=== PATIENT | male | born 1985 | race Caucasian/White ===

== ENCOUNTER 2016-06-08 00:35 | Emergency (ER) | payer MEDICAID ==
[2016-06-08 00:44] VITALS: BP 144/75; TEMP 97.9
--- NOTE | 2016-06-08 01:18 | C.PDOC ---
History Of Present Illness 31 y/o male, history of NIDDM 6months ago, non compliant with medication, presents to ED after sugar checked at home and was "high" and took dose of metformin. Patient states last night checked it was in 100's. AT present time, pt Denies any active physical complaints. Pt states blood sugar has been fluctuating over last 6 months since starting Metformin. 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 Ambulate to Ed for evaluation, not in any apparent distress. Time Seen by Provider: 06/08/16 00:52 Chief Complaint (Nursing): High Blood Sugar History Per: Patient History/Exam Limitations: no limitations Onset/Duration Of Symptoms: Days Current Symptoms Are (Timing): Still Present Current Diabetic Medications: Oral Medication Associated Infectious Symptoms: denies: Cough, Urinary Urgency, Urinary Frequency, Nausea, Vomiting, Diarrhea Recent travel outside of the [place]: No Past Medical History Reviewed: Historical Data, Nursing Documentation, Vital Signs Vital Signs: Last Vital Signs Temp 97.9 F 06/08/16 00:40 Pulse 64 06/08/16 02:21 Resp 20 06/08/16 02:21 BP 144/75 06/08/16 00:40 Pulse Ox 100 06/08/16 02:21 - Medical History PMH: Asthma, Diabetes (Pre-diabetic), Fractures (right ankle), Gall Bladder Disease - [facility] Procedures DETOXIFICATION SERVICES FOR SUBSTANCE ABUSE TREATMENT (10/16/15) INDIV PHYSICIAN ASSISTANT FOR SUBSTANCE ABUSE, COGNITIVE BEHAVIORAL (10/16/15) INDIV PSYCHOTHERAPY FOR SUBSTANCE ABUSE TREATMENT, SUPPORT (10/16/15) PHARMACOTHERAPY FOR SUBSTANCE ABUSE TREATMENT, ANTABUSE (10/16/15) Family History: States: Unknown Family Hx - Social History Hx Tobacco Use: Yes Hx Alcohol Use: Yes Hx Substance Use: No (percocet detox-no narcotics requested) - Immunization History Hx Tetanus Toxoid Vaccination: Yes Hx Influenza Vaccination: No Hx Pneumococcal Vaccination: No Review Of Systems Except As Marked, All Systems Reviewed And Found Negative. Constitutional: Negative for: Fever, Chills ENT: Negative for: Throat Pain Cardiovascular: Negative for: Chest Pain, Palpitations Respiratory: Negative for: Shortness of Breath Gastrointestinal: Negative for: Nausea, Vomiting, Abdominal Pain Genitourinary: Negative for: Dysuria, Frequency Skin: Negative for: Rash Neurological: Negative for: Headache, Dizziness Physical Exam - Physical Exam Appears: Well, Non-toxic, No Acute Distress Skin: Normal Color, Warm, No Rash Eye(s): bilateral: PERRL Nose: Normal, No Discharge Oral Mucosa: Moist, No Drooling Throat: Normal, No Erythema, No Exudate, No Drooling Neck: Normal ROM, Trachea Midline, Supple Cardiovascular: Rhythm Regular Respiratory: Normal Breath Sounds, No Decreased Breath Sounds, No Accessory Muscle Use, No Stridor, No Wheezing Gastrointestinal/Abdominal: Soft, No Tenderness, No Distention, No Guarding, No Rebound Back: No CVA Tenderness Extremity: Normal ROM, No Pedal Edema Neurological/Psych: Oriented x3, Normal Speech ED Course And Treatment O2 Sat by Pulse Oximetry: 99 Pulse Ox Interpretation: Normal Progress Note: On re-eval, pt is Afebrile, hemodynamicaly stable. Non-toxic. Tolerate PO well in ED. PusleOx 100% RA. ENT: No acute findings. Lungs: CTA B /L, BS equal B/L. Abd: benign, (-) guarding, (-) rebound. Neurologicaly intact. FSBS in ED 100. Pt has clinical findings c/w hyperglycemia Hx of NIDDM. Pt advised. ref. to F/u with Endo as scheduled in 2 days for re-eval. return to ED if any worsening or new changes. Disposition Counseled Patient/Family Regarding: Diagnosis, Need For Followup - Disposition Referrals: Jerry Triplett MD [Non-Staff] - Disposition: HOME/ ROUTINE Disposition Time: 01:16 Condition: STABLE Additional Instructions: Encourage fluids Follow up with Endocrinology in 1-2 days for re-evaluation as scheduled Return to ED at any time if any worsening or new changes. Instructions: Diabetic Hyperglycemia (ED) - Clinical Impression Clinical Impression: Hyperglycemia due to type 2 diabetes mellitus - PA / INSPECTOR POISING / Resident Statement MD/DO has reviewed & agrees with the documentation as recorded. - Scribe Statement The provider has reviewed the documentation as recorded by the Shanice Young Provider Scribe Attestation: All medical record entries made by the Scribe were at my direction and personally dictated by me. I have reviewed the chart and agree that the record accurately reflects my personal performance of the history, physical exam, medical decision making, and the department course for this patient. I have also personally directed, reviewed, and agree with the discharge instructions and disposition.
[2016-06-08 02:26] VITALS: PULSE 64; RESP 20
[2016-06-08 03:07] VITALS: O2SAT 99
== END 2016-06-08 02:20 | disposition home or self-care (01) ==
LOC: C.ER 00:35
DX: E11.65 Type 2 diabetes mellitus with hyperglycemia (principal); Z79.84 Long term (current) use of oral hypoglycemic drugs

== ENCOUNTER 2016-08-21 18:25 | Inpatient (IN) | payer MEDICAID ==
[2016-08-21 18:38] VITALS: BMI 24.7
--- NOTE | 2016-08-21 19:07 | C.PDOC ---
History Of Present Illness 31 y/o male presents to the ED for heroin detox. Patient denies any other drug/ alcohol use and has no other complaints at this time. Time Seen by Provider: 08/21/16 18:45 Chief Complaint (Nursing): Substance Abuse History Per: Patient History/Exam Limitations: intoxication Onset/Duration Of Symptoms: Hrs Current Symptoms Are (Timing): Still Present Suicide/Self Injury Attempted (Context): None Modifying Factor(s): Other (+heroin ) Associated Symptoms: denies: Suicidal Thoughts, Suicidal Plan Involuntary Hold By: None Recent travel outside of the [place]: No Additional History Per: Patient Past Medical History Reviewed: Historical Data, Nursing Documentation, Vital Signs Vital Signs: Last Vital Signs Temp 97.8 F 08/23/16 20:18 Pulse 67 08/24/16 13:00 Resp 18 08/24/16 13:00 BP 107/67 08/24/16 13:00 Pulse Ox 99 08/24/16 13:00 - Medical History PMH: Asthma, Diabetes (Pre-diabetic), Fractures (right ankle), Gall Bladder Disease Surgical History: No Surg Hx - [facility] Procedures DETOXIFICATION SERVICES FOR SUBSTANCE ABUSE TREATMENT (10/16/15) INDIV KNOWLEDGE ANALYST FOR SUBSTANCE ABUSE, COGNITIVE BEHAVIORAL (10/16/15) INDIV PSYCHOTHERAPY FOR SUBSTANCE ABUSE TREATMENT, SUPPORT (10/16/15) PHARMACOTHERAPY FOR SUBSTANCE ABUSE TREATMENT, ANTABUSE (10/16/15) Family History: States: Unknown Family Hx - Social History Hx Tobacco Use: Yes Hx Alcohol Use: Yes Hx Substance Use: Yes (percocet detox-no narcotics requested) - Immunization History Hx Tetanus Toxoid Vaccination: Yes Hx Influenza Vaccination: No Hx Pneumococcal Vaccination: No Review Of Systems Constitutional: Negative for: Fever, Chills Gastrointestinal: Negative for: Nausea, Vomiting, Diarrhea Neurological: Negative for: Weakness, Numbness Psych: Positive for: Other (+heroin detox ) Physical Exam - Physical Exam Appears: No Acute Distress Skin: Normal Color, Warm, Dry Head: Atraumatic, Normacephalic Eye(s): bilateral: Normal Inspection Oral Mucosa: Moist Neck: Supple Chest: Symmetrical, No Deformity, No Tenderness Cardiovascular: Rhythm Regular, No Murmur Respiratory: Normal Breath Sounds, No Rales, No Rhonchi, No Wheezing Extremity: Normal ROM, Capillary Refill (less than 2 seconds ) Neurological/Psych: Oriented x3, Normal Speech, Normal Cognition Gait: Steady ED Course And Treatment - Laboratory Results Result Diagrams: 08/21/16 19:17 08/21/16 19:17 O2 Sat by Pulse Oximetry: 96 (on RA) Pulse Ox Interpretation: Normal Medical Decision Making Medical Decision Making: EKG: Ordered, reviewed, and independently interpreted the EKG. Rate: 65 BPM Rhythm: Normal Sinus Rhythm Interpretation: left axis deviation. Disposition - Disposition Disposition: HOSPITALIZED Disposition Time: 22:29 Condition: STABLE - Clinical Impression Clinical Impression: Opiate dependence, Drug abuse - Scribe Statement The provider has reviewed the documentation as recorded by the Scribe (Jennifer Hart) Provider Attestation: All medical record entries made by the Scribe were at my direction and personally dictated by me. I have reviewed the chart and agree that the record accurately reflects my personal performance of the history, physical exam, medical decision making, and the department course for this patient. I have also personally directed, reviewed, and agree with the discharge instructions and disposition.
[2016-08-21 19:21] LABS: BASO # 0.1 K/uL (0.0-0.2); BASO % 0.6 % (0.0-2.0); EOS # 0.3 K/uL (0.0-0.7); EOS % 3.1 % (0.0-4.0); HEMOGLOBIN 14.1 g/dL (12.0-18.0); LYMPH # 2.9 K/uL (1.0-4.3); LYMPH % 33.8 % (20.0-40.0); MEAN CELL VOLUME 87.4 fL (80.0-94.0); MEAN CORPUSCULAR HEMOGLOBIN 29.2 pg (27.0-31.0); MEAN CORPUSCULAR HGB CONC 33.4 g/dL (33.0-37.0); MONO # 0.6 K/uL (0.0-0.8); MONO % 7.5 % (0.0-10.0); NEUT # 4.7 K/uL (1.8-7.0); RBC 4.82 Mil/uL (4.40-5.90); RED CELL DISTRIBUTION WIDTH 13.4 % (11.5-14.5); WHITE BLOOD COUNT 8.6 K/uL (4.8-10.8)
[2016-08-21 19:39] LABS: ALBUMIN 4.3 g/dL (3.5-5.0)
[2016-08-21 19:41] LABS: GFR AFRICAN-AMERICAN > 60; GFR NON-AFRICAN AMERICAN > 60
[2016-08-21 19:42] LABS: ALB/GLOB RATIO 1.5 (1.0-2.1); ALT/SGPT 41 U/L (21-72); AST/SGOT 31 U/L (17-59); BLOOD UREA NITROGEN 14 mg/dL (9-20); CALCIUM 9.1 mg/dl (8.6-10.4)
[2016-08-21 21:57] LABS: SQUAMOUS EPITHIAL < 1 /hpf (0-5); URINE BACTERIA FEW (<OCC); URINE BILIRUBIN NEGATIVE (NEGATIVE); URINE BLOOD NEGATIVE (NEGATIVE); URINE CLARITY Clear (Clear); URINE COLOR Yellow (YELLOW); URINE GLUCOSE (UA) NORMAL (Normal); URINE LEUKOCYTE ESTERASE NEG Leu/uL (Negative); URINE NITRATE NEGATIVE (NEGATIVE); URINE PROTEIN NEGATIVE (NEGATIVE); URINE UROBILINOGEN NORMAL mg/dL (0.2-1.0)
[2016-08-21 21:59] LABS: BARBITURATES, UR NEGATIVE (NEGATIVE)
[2016-08-21 22:00] LABS: BENZODIAZEPINES, UR NEGATIVE (NEGATIVE)
[2016-08-21 22:04] LABS: OPIATES, UR POSITIVE (NEGATIVE); PHENCYCLIDINE, UR NEGATIVE (NEGATIVE)
[2016-08-22] MEDS ORDERED: Aluminum Hydroxide/Magnesium Hydroxide Susp (30 mL) PO PRN (07:22)
[2016-08-22] MEDS ORDERED: Albuterol HFA 90 mcg/actuation (8 g) INH PRN (07:24)
[2016-08-22] MEDS ORDERED: Buprenorphine Hydrochloride 2 mg SL ONE ×2 (10:16→11:30)
--- NOTE | 2016-08-22 14:38 | PCM.PSYCH ---
Initial Psychiatric Evaluation - Initial Psychiatric Evaluation Type of Admission: Voluntary Legal Status: Capacity Chief Complaint (in patient's own words): "Heroin" History of Present Illness and Precipitating Events: The patient is seen, chart reviewed and case discussed. He is known to the designer/writer from a previous admission last year. 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 The patient is here for heroin detox; using 15 bags intranasally for the last 5 months. However, his first use was in teenage years. He denies using painkillers , alcohol or other drugs. He smokes 6 cigarettes a day. This is his second detox and he has not been to rehabilitation before. He denies psych symptoms. Past psych history: Denies Family psych history: Brother used cocaine but stopped. Medical history: Asthma and diabetes Current Medications: Active Medications Generic Name Dose Route Start Last Admin Trade Name Freq PRN Reason Stop Dose Admin Acetaminophen 650 mg 08/22/16 07:22 Tylenol 325mg Tab PO Q4H PRN Fever greater than 101 F Al Hydrox/Mg Hydrox/Simethicone 30 ml 08/22/16 07:22 Maalox 30 Ml PO TID PRN Indigestion / Heartburn Albuterol 1 puff 08/22/16 07:24 Ventolin Hfa 90 Mcg/Actuation (8 G) INH Q6H PRN Shortness of Breath Clonidine HCl 0.1 mg 08/22/16 07:22 Catapres PO Q8 PRN COWS Score More or Equal to 5 Loperamide HCl 2 mg 08/22/16 07:22 Imodium PO Q8 PRN Diarrhea Metformin HCl 500 mg 08/22/16 08:00 08/22/16 10:33 Glucophage PO 500 mg DAILY@0800 JOHN Administration Ondansetron HCl 4 mg 08/22/16 07:22 Zofran Tab PO Q8 PRN Nausea/Vomiting Pseudoephedrine HCl 60 mg 08/22/16 07:22 Sudafed Tab PO QID PRN Nasal/Sinus Congestion Trazodone HCl 50 mg 08/22/16 22:00 Desyrel PO HS JOHN Past Psychiatric History - Past Psychiatric History Previous Treatment History: None Pertinent Medical Hx (Current Medical&Sleep Prob, Allergies): Allergies Allergy/AdvReac Type Severity Reaction Status Date / Time No Known Allergies Allergy Verified 08/21/16 18:37 Albuterol HFA [Ventolin HFA 90 mcg/actuation (8 g)] 0.09 mg IH PRN PRN 10/16/15 metFORMIN [glucOPHAGE] 500 mg PO DAILY 12/08/15 Review of Systems - Neurological Neurological: UNREMARKABLE - Psychiatric Psychiatric: Abnormal Sleep Pattern, Anxiety. absent: Hallucinations, Homicidal Ideation, Suicidal Ideation Mental Status Examination - Personal Presentation Personal Presentation: Looks stated age - Affect Affect: Broad - Motor Activity Motor Activity: Calm - Reliability in Providing Information Reliability in Providing Information: Good - Speech Speech: Organized - Mood Mood: Anxious - Formal Thought Process Formal Thought Process: No Impairment - Cognitive Functions Orientation: Person, Place, Situation, Time Sensorium: Alert Attention/Concentration: Attentive Estimate of Intelligence: Average Judgement: Intact, as evidence by: Insight regarding need for hospitalization Memory: Recent intact, as evidence by: Ability to recall events of the day, Remote intact, as evidenced by: Abilit to recall sig. life events - Risk Risk: Withdrawal, Diminished functioning - Strength & Assets Inventory Strength & Assets Inventory: Cooperative - Limitations Limitations: Other DSM 5 DX - DSM 5 DSM 5 Diagnosis: Opioid withdrawal Opioid use d/o - severe Asthma DM - Recommended/Plan of Treatment Treatment Recommendations and Plan of Treatment: Subutex detox Gabapentin for augmentation As needed meds and vitamins Attend groups and activities SD for abstinence and CBT for relapse prevention Support and psychoeducation Consider and encourage MAT Refer to after care 33 min Projected ELOS: 4 days Prognosis: Good w treatment Discharge Plan and Discharge Criteria: No wdw sxs Refer to rehab or IOP and MAT - Smoking Cessation Smoking Cessation Initiated: Yes
[2016-08-23] MEDS: Buprenorphine Hydrochloride 2 mg SL SCH (09:50)
--- NOTE | 2016-08-23 13:36 | CARD ---
APPROVED REPORT EKG Measurement Heart [id number] <Conclusion> Normal sinus rhythm Left axis deviation Abnormal ECG
--- NOTE | 2016-08-23 15:35 | PCM.PYCHPN ---
Psychiatric Progress Note - Psychiatric Progress Note Patient seen today, length of contact: 16 min Patient Chief Complaint: "I could not sleep at all" Problems Identified/Issues Discussed: The pt is seen, chart reviewed, case discussed with staff. The pt is compliant with medications and reports no side-effects. Symptoms are improving but needs more time to stabilize. After care discussed, support and psychoeducation given. Medication Change: Yes (Detox changes daily, add seroquel) Medical Record Reviewed: Yes Mental Status Examination - Cognitive Function Orientation: Person, Place, Situation, Time Memory: Intact Attention: WNL Concentration: Poor Association: WNL Fund of Knowledge: WNL - Mood Mood: Anxious - Affect Affect: Broad - Speech Speech: Appropriate - Formal Thought Process Formal Thought Process: No Impairment - Suicidal Ideation Suicidal Ideation: No - Homicidal Ideation Homicidal Ideation: No Goal/Treatment Plan - Goal/Treatment Plan Need for Continued Stay: Discharge may exacerbated symptoms, Severe functional impairment Progress Toward Problem(s) and Goals/Treatment Plan: Subutex detox Gabapentin for augmentation As needed meds and vitamins Attend groups and activities [place] for abstinence and CBT for relapse prevention Support and psychoeducation Consider and encourage MAT Refer to after care Estimated Date of D/C: 08/25/16 - Smoking Cessation Smoking Cessation Initiated: Yes
--- NOTE | 2016-08-24 01:13 | CP.PCM.PN ---
<Shelley Adame - Last Filed: 08/24/16 01:34> Subjective - Date & Time of Evaluation Date of Evaluation: 08/24/16 Time of Evaluation: 01:03 - Subjective Subjective: House Doctor responding to CODE STAR @ 1:03 Patient went to use the bathroom, when he stood up, he felt lightheaded, dizzy, became diaphoretic, and collapsed. He was awakened by his roommate who found the patient supine with his head prompted up by the wall. On exam, there is a contusion on the back of the patient's head. This is the first time this has happened to the patient. Patient was started on seroquel, atarax, seroquel and trazdone today. Patient refused HEAD CT now, states he will do so in the morning. The importance of going to have the HEAD CT performed now was stressed to the patient, but he continued to refuse and stated he just wants to go to sleep. Accucheck Orthostatic BPs HEAD CT ordered Objective - Vital Signs/Intake and Output Vital Signs (last 24 hours): Temp Pulse Resp BP Pulse Ox 97.8 F 60 18 112/68 100 08/23/16 20:18 08/23/16 20:18 08/23/16 20:18 08/23/16 20:18 08/23/16 20:18 - Medications Medications: Current Medications Acetaminophen (Tylenol 325mg Tab) 650 mg PO Q4H PRN PRN Reason: Fever greater than 101 F Al Hydrox/Mg Hydrox/Simethicone (Maalox 30 Ml) 30 ml PO TID PRN PRN Reason: Indigestion / Heartburn Albuterol (Ventolin Hfa 90 Mcg/Actuation (8 G)) 1 puff INH Q6H PRN PRN Reason: Shortness of Breath Buprenorphine HCl (Subutex) 6 mg SL DAILY JOHN PRN Reason: Taper Stop: 08/26/16 09:59 Last Admin: 08/23/16 09:50 Dose: 6 mg Clonidine HCl (Catapres) 0.1 mg PO Q8 PRN PRN Reason: COWS Score More or Equal to 5 Hydroxyzine HCl (Atarax) 25 mg PO Q6 PRN PRN Reason: Anxiety Last Admin: 08/23/16 22:01 Dose: 25 mg Loperamide HCl (Imodium) 2 mg PO Q8 PRN PRN Reason: Diarrhea Metformin HCl (Glucophage) 500 mg PO DAILY@0800 [facility] Last Admin: 08/23/16 09:49 Dose: 500 mg Ondansetron HCl (Zofran Tab) 4 mg PO Q8 PRN PRN Reason: Nausea/Vomiting Pseudoephedrine HCl (Sudafed Tab) 60 mg PO QID PRN PRN Reason: Nasal/Sinus Congestion Quetiapine Fumarate (Seroquel) 100 mg PO HS JOHN Last Admin: 08/23/16 22:01 Dose: 100 mg Trazodone HCl (Desyrel) 100 mg PO HS PRN PRN Reason: Insomnia Last Admin: 08/23/16 22:02 Dose: 100 mg <Efren Garcia P - Last Filed: 08/26/16 06:17> Objective - Vital Signs/Intake and Output Vital Signs (last 24 hours): Temp Pulse Resp BP Pulse Ox 98.0 F 63 18 123/83 98 08/25/16 09:40 08/25/16 09:40 08/25/16 09:40 08/25/16 09:40 08/25/16 09:40 Attending/Attestation - Attestation I have personally seen and examined this patient.: Yes I have fully participated in the care of the patient.: Yes I have reviewed all pertinent clinical information, including history, physical exam and plan: Yes
[2016-08-24] MEDS: Buprenorphine Hydrochloride 2 mg SL SCH ×2 (10:15→10:18)
--- NOTE | 2016-08-24 11:18 | PCM.PYCHPN ---
Psychiatric Progress Note - Psychiatric Progress Note Patient seen today, length of contact: 17 min Patient Chief Complaint: "I am OK" Problems Identified/Issues Discussed: The pt is seen, chart reviewed, case discussed with staff. Support given, CBT and OR used briefly No new symptoms reported, improving slowly and needs more time He fell in the bathroom last night and he says he is OK. Refused CT scan of the head Seroquel stopped as he may be dizzy from that, he will use prn atarax and/or trazodone He agreed. He denies any fall-related problems No SEs from medications, risks discussed. After care discussed Medication Change: Yes (Detox changes daily) Medical Record Reviewed: Yes Mental Status Examination - Cognitive Function Orientation: Person, Place, Situation, Time Memory: Intact Attention: WNL Concentration: Poor Association: WNL Fund of Knowledge: WNL - Mood Mood: Anxious - Affect Affect: Broad - Speech Speech: Appropriate - Formal Thought Process Formal Thought Process: No Impairment - Suicidal Ideation Suicidal Ideation: No - Homicidal Ideation Homicidal Ideation: No Goal/Treatment Plan - Goal/Treatment Plan Need for Continued Stay: Discharge may exacerbated symptoms, Severe functional impairment Progress Toward Problem(s) and Goals/Treatment Plan: Subutex detox Gabapentin for augmentation As needed meds and vitamins Attend groups and activities [place] for abstinence and CBT for relapse prevention Support and psychoeducation Consider and encourage MAT Refer to after care Estimated Date of D/C: 08/25/16
--- NOTE | 2016-08-25 08:48 | PCM.PYCHDC ---
Mental Status Examination - Mental Status Examination Orientation: Person, Place, Situation, Time Memory: Intact Mood: Anxious Affect: Constricted Speech: Appropriate Attention: WNL Concentration: Poor Association: WNL Fund of Knowledge: WNL Formal Thought Process: No Impairment Suicidal Ideation: No Current Homicidal Ideation?: No Discharge Summary - Discharge Note Reason for Hospitalization: Heroin detox Consultations:: List each consultation separately and include: 1. Reason for request. 2. Findings. 3. Follow-up Summary of Hospital Course include:: 1. Description of specific treatment plan utilized for patients during their course of treatmen. 2. Summarize the time- course for resolution of acute symptoms and/or regressed behaviors. 3. Describe issues identified and worked on during hospitalization. 4. Describe medication utilized. 5. Describe medical problems identified and treated. 6. Reassessment of suicide risk Summary of Hospital Course: On admission: The patient is seen, chart reviewed and case discussed. He is known to the telegraphic typewriter operator from a previous admission last year. 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 The patient is here for heroin detox; using 15 bags intranasally for the last 5 months. However, his first use was in teenage years. He denies using painkillers , alcohol or other drugs. He smokes 6 cigarettes a day. This is his second detox and he has not been to rehabilitation before. He denies psych symptoms. Past psych history: Denies Family psych history: Brother used cocaine but stopped. Medical history: Asthma and diabetes Hospital course: The pt was admitted and started on treatment with psychotherapy, support, psychoeducation and medications. AK and CBT used. The pt attended groups and activities, as well as milieu therapy. All the risks and benefits of medications are discussed and the patient understood and agreed. The pt improved with the treatments provided. After care discussed with the patient. He decided to go to [facility]. - Final Diagnosis (DSM 5) Condition upon Discharge: IMPROVED DSM 5: Opioid withdrawal Opioid use d/o - severe Asthma DM Disposition: HOME/ ROUTINE Follow-up Treatment Plan: Continue below medications after discharge. Follow after care plan as discussed at [facility] Use relapse prevention skills Return to ER or call 911 if suicidal, homicidal or symptoms relapse. Stay away from stress, alcohol and drugs. See primary doctor once a year. Prescriptions/Medication Reconciliation: Albuterol HFA [Ventolin HFA 90 mcg/actuation (8 g)] 0.09 mg IH PRN PRN #1 PRN Reason: Shortness Of Breath metFORMIN [glucOPHAGE] 500 mg PO DAILY #30 traZODone [Desyrel] 200 mg PO HS PRN #60 tab PRN Reason: Insomnia - Smoking Cessation Smoking Cessation Medication prescribed: No - Antipsychotic Medications Pt discharged on 2 or more routine antipsychotic medications: No
[2016-08-25] MEDS: Buprenorphine Hydrochloride 2 mg SL SCH (09:02)
[2016-08-25 09:43] VITALS: BP 123/83; PULSE 63; RESP 18; TEMP 98; O2SAT 98
== END 2016-08-25 09:30 | disposition home or self-care (01) | DRG 745 ==
LOC: C.ER 18:25 → C.9E 22:29 → C.5E 23:26 → C.7D 08-22 00:08
PROVIDERS: ADMIT Psychiatry & Neurology Psychiatry; ATTEND Psychiatry & Neurology Psychiatry
PROC: HZ2ZZZZ Detoxification Services for Substance Abuse Treatment (ICD-10-PCS; principal; 2016-08-21)
PROC: GZ56ZZZ Individual Psychotherapy, Supportive (ICD-10-PCS; 2016-08-21)
DX: F11.23 Opioid dependence with withdrawal (principal); E11.9 Type 2 diabetes mellitus without complications; F17.210 Nicotine dependence, cigarettes, uncomplicated; J45.909 Unspecified asthma, uncomplicated; S20.229A Contusion of unspecified back wall of thorax, initial encounter

== ENCOUNTER 2016-09-24 01:37 | Emergency (ER) | payer MEDICAID ==
[2016-09-24 01:37] VITALS: BMI 24.7
--- NOTE | 2016-09-24 02:03 | C.PDOC ---
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 reproducible on palpation. Speaking in complete sentences. No f/c/n/v. States that he also has been having trouble sleeping and took some xanax Time Seen by Provider: 09/24/16 02:01 Chief Complaint (Nursing): Chest Pain History Per: Patient History/Exam Limitations: no limitations Onset/Duration Of Symptoms: Days Current Symptoms Are (Timing): Still Present Context: Other Severity: Moderate Pain Scale Rating Of: 4 Quality: Dull, Aching Associated Symptoms: denies: Nausea, Dyspnea Modifying Factors: None Exacerbating Factors: Movement Alleviating Factors: None Recent travel outside of the [place]: No Additional History Per: Patient Past Medical History Reviewed: Historical Data, Nursing Documentation, Vital Signs Vital Signs: Last Vital Signs Temp 98 F 09/24/16 01:48 Pulse 78 09/24/16 03:45 Resp 20 09/24/16 03:45 BP 122/78 09/24/16 03:45 Pulse Ox 97 09/24/16 03:45 - Medical History PMH: Asthma, Diabetes (Pre-diabetic), Fractures (right ankle), Gall Bladder Disease Denies: Hepatitis, HIV, HTN, Chronic Kidney Disease, Seizures, Sexually Transmitted Disease - [facility] Procedures DETOXIFICATION SERVICES FOR SUBSTANCE ABUSE TREATMENT (08/21/16) INDIV DEPARTMENT HEAD COLLEGE OR UNIVERSITY FOR SUBSTANCE ABUSE, COGNITIVE BEHAVIORAL (10/16/15) INDIV PSYCHOTHERAPY FOR SUBSTANCE ABUSE TREATMENT, SUPPORT (10/16/15) INDIVIDUAL PSYCHOTHERAPY, SUPPORTIVE (08/21/16) PHARMACOTHERAPY FOR SUBSTANCE ABUSE TREATMENT, ANTABUSE (10/16/15) Family History: States: No Known Family Hx - Social History Hx Tobacco Use: Yes Hx Alcohol Use: Yes Hx Substance Use: Yes (percocet detox-no narcotics requested) - Immunization History Hx Tetanus Toxoid Vaccination: Yes Hx Influenza Vaccination: No Hx Pneumococcal Vaccination: No Review Of Systems Constitutional: Negative for: Fever, Chills Eyes: Negative for: Redness ENT: Negative for: Throat Pain Cardiovascular: Positive for: Chest Pain Respiratory: Negative for: Shortness of Breath Gastrointestinal: Negative for: Nausea, Vomiting, Abdominal Pain Genitourinary: Negative for: Dysuria Musculoskeletal: Negative for: Back Pain Skin: Negative for: Rash, Lesions, Jaundice Neurological: Negative for: Weakness Psych: Positive for: Anxiety Physical Exam - Physical Exam Appears: Non-toxic, No Acute Distress Skin: Warm, Dry Head: Normacephalic Eye(s): bilateral: Normal Inspection, PERRL, EOMI Oral Mucosa: Moist Neck: Supple Chest: Symmetrical, Tenderness (left chest wall, reproducible) Respiratory: No Rales, No Rhonchi, No Wheezing Gastrointestinal/Abdominal: Soft, No Tenderness, No Distention, No Rebound Back: No CVA Tenderness Extremity: Normal ROM Extremity: Bilateral: Atraumatic, Normal Color And Temperature Pulses: Left Dorsalis Pedis: Normal, Right Dorsalis Pedis: Normal Neurological/Psych: Oriented x3, Normal Speech, Normal Cognition Gait: Steady ED Course And Treatment - Laboratory Results Result Diagrams: 09/24/16 02:22 09/24/16 02:22 ECG: Interpreted By Me, Viewed By Me ECG Rhythm: Sinus Rhythm (89), Nonspecific Changes O2 Sat by Pulse Oximetry: 92 Pulse Ox Interpretation: Abnormal - Radiology CXR: Interpreted by Me, Viewed By Me CXR Interpretation: No: Infiltrates, Fracture, Pnemothorax Progress Note: cardiac work up, asa, drug screen Medical Decision Making Medical Decision Making: I considered the following diagnoses: acute coronary syndrome, pulmonary embolism, lower respiratory infection, aortic dissection/aneurysm, pneumothorax , pericarditis, esophagitis/GERD, zoster and esophageal rupture but found them to be unlikely based on the history, physical exam, and diagnostics. My conclusions regarding the unlikely diagnoses were based on: the absence of significant EKG abnormalities, the lack of suggestive x-ray findings, the absence of significant abnormalities on cardiac monitoring, the absence of asymmetric pulses. Upon provider reevaluation patient is feeling better, is medically stable, and requires no further treatment in the ED at this time. Patient will be discharged home . Counseling was provided and all questions were answered regarding diagnosis and need for follow up with the referred clinic. There is agreement to discharge plan. Return if symptoms persist or worsen. Disposition Counseled Patient/Family Regarding: Studies Performed, Diagnosis, Need For Followup - Disposition Referrals: Toney Hall MD [Non-Staff] - Disposition: HOME/ ROUTINE Disposition Time: 02:01 Condition: FAIR Instructions: Cocaine Abuse (ED), Chest Wall Pain (ED) Forms: [employer] (Kyrgyz) - Clinical Impression Clinical Impression: Chest wall pain, Cocaine abuse
[2016-09-24] MEDS ORDERED: Aspirin 325 mg EC Tablets PO STA (02:08)
[2016-09-24 02:25] LABS: BASO # 0.1 K/uL (0.0-0.2); BASO % 0.8 % (0.0-2.0); EOS # 0.4 K/uL (0.0-0.7); EOS % 3.3 % (0.0-4.0); HEMATOCRIT 38.4 % (35.0-51.0); LYMPH # 3.1 K/uL (1.0-4.3); LYMPH % 28.6 % (20.0-40.0); MEAN CORPUSCULAR HEMOGLOBIN 30.1 pg (27.0-31.0); MEAN CORPUSCULAR HGB CONC 34.2 g/dL (33.0-37.0); MEAN PLATELET VOLUME 8.6 fL (7.2-11.7); MONO # 0.9 K/uL (0.0-0.8); MONO % 7.9 % (0.0-10.0); RED CELL DISTRIBUTION WIDTH 13.4 % (11.5-14.5); WHITE BLOOD COUNT 10.9 K/uL (4.8-10.8)
[2016-09-24 02:32] LABS: CHLORIDE 104 mmol/L (98-107)
[2016-09-24 02:33] LABS: POTASSIUM 4.8 mmol/L (3.6-5.2); SODIUM 141 mmol/L (132-148)
[2016-09-24 02:35] LABS: GFR AFRICAN-AMERICAN > 60
[2016-09-24 02:36] LABS: ALB/GLOB RATIO 1.3 (1.0-2.1); ALKALINE PHOSPHATASE 44 U/L (38-126); ALT/SGPT 30 U/L (21-72); AST/SGOT 42 U/L (17-59); BILIRUBIN,TOTAL 0.9 mg/dL (0.2-1.3); BLOOD UREA NITROGEN 20 mg/dL (9-20); CALCIUM 8.8 mg/dl (8.6-10.4); CARBON DIOXIDE 25 mmol/L (22-30); GLUCOSE,RANDOM 126 mg/dL (75-110)
[2016-09-24 02:52] LABS: RBC URINE 1 /hpf (0-3); URINE BILIRUBIN NEGATIVE (NEGATIVE); URINE BLOOD NEGATIVE (NEGATIVE); URINE COLOR Yellow (YELLOW); URINE GLUCOSE (UA) NORMAL (Normal); URINE KETONE NEGATIVE (NEGATIVE); URINE LEUKOCYTE ESTERASE NEG Leu/uL (Negative); URINE PROTEIN 1+ mg/dL (NEGATIVE); URINE UROBILINOGEN NORMAL mg/dL (0.2-1.0); WBC URINE 5 /hpf (0-5)
[2016-09-24 04:28] VITALS: RESP 20
[2016-09-24 05:42] VITALS: BP 118/78; PULSE 88; TEMP 98.1; O2SAT 97
--- NOTE | 2016-09-24 12:44 | RAD ---
PROCEDURE: CHEST RADIOGRAPH, 1 VIEW HISTORY: chest pain COMPARISON: None available. FINDINGS: LUNGS: Clear. PLEURA: No pneumothorax or pleural fluid seen. CARDIOVASCULAR: Normal. OSSEOUS STRUCTURES: No significant abnormalities. VISUALIZED UPPER ABDOMEN: Normal. OTHER FINDINGS: None. IMPRESSION: No active disease. No preliminary report provided by emergency department personnel.
--- NOTE | 2016-09-25 20:54 | CARD ---
APPROVED REPORT EKG Measurement Heart [id number] <Conclusion> Normal sinus rhythm Normal ECG
== END 2016-09-24 05:38 | disposition home or self-care (01) ==
LOC: C.ER 01:37
DX: F14.10 Cocaine abuse, uncomplicated (principal); R07.89 Other chest pain
CPT/HCPCS: 71010; 80053; 80324; 80345; 80346; 80349; 80353; 80358; 80361; 81001; 83992; 84484; 85025; 85610; 85730; 93005; 96374; 99285; J1885

== ENCOUNTER 2017-02-07 18:29 | Emergency (ER) | payer MEDICAID ==
[2017-02-07 18:30] VITALS: BMI 24.7
[2017-02-07 18:36] VITALS: BP 125/79; PULSE 78; RESP 20; TEMP 98.9; O2SAT 98
--- NOTE | 2017-02-07 19:57 | C.PDOC ---
History Of Present Illness pt presents because he wants detox from heroin and percocet. Last used a few hours ago. Denies any suicidal or homicidal ideation. No f/c/n/v. Time Seen by Provider: 02/07/17 19:50 Chief Complaint (Nursing): Substance Abuse Past Medical History Vital Signs: Last Vital Signs Temp 98.9 F 02/07/17 18:32 Pulse 78 02/07/17 18:32 Resp 20 02/07/17 18:32 BP 125/79 02/07/17 18:32 Pulse Ox 98 02/07/17 18:32 - Medical History PMH: Asthma, Diabetes (Pre-diabetic), Fractures (right ankle), Gall Bladder Disease Denies: Hepatitis, HIV, HTN, Chronic Kidney Disease, Seizures, Sexually Transmitted Disease - [facility] Procedures DETOXIFICATION SERVICES FOR SUBSTANCE ABUSE TREATMENT (08/21/16) INDIV APPLICATION DESIGN ENGINEER FOR SUBSTANCE ABUSE, COGNITIVE BEHAVIORAL (10/16/15) INDIV PSYCHOTHERAPY FOR SUBSTANCE ABUSE TREATMENT, SUPPORT (10/16/15) INDIVIDUAL PSYCHOTHERAPY, SUPPORTIVE (08/21/16) PHARMACOTHERAPY FOR SUBSTANCE ABUSE TREATMENT, ANTABUSE (10/16/15) Family History: States: Unknown Family Hx - Social History Hx Tobacco Use: Yes Hx Alcohol Use: Yes Hx Substance Use: Yes (percocet detox-no narcotics requested) - Immunization History Hx Tetanus Toxoid Vaccination: Yes Hx Influenza Vaccination: No Hx Pneumococcal Vaccination: No ED Course And Treatment O2 Sat by Pulse Oximetry: 98 Pulse Ox Interpretation: Normal Progress Note: pt was seen by crisis and explained that there are no detox beds. Was given information about other places for detox as well as out patient treatment centers. Pt refused physical exam Disposition Counseled Patient/Family Regarding: Diagnosis, Need For Followup - Disposition Referrals: [facility] [Outside] Disposition: HOME/ ROUTINE Disposition Time: 19:57 Condition: FAIR Instructions: Polysubstance Abuse (ED) Forms: [employer] (Filipino) - Clinical Impression Clinical Impression: Polysubstance (excluding opioids) dependence
== END 2017-02-07 20:14 | disposition home or self-care (01) ==
LOC: C.ER 18:29
DX: F19.20 Other psychoactive substance dependence, uncomplicated (principal)

== ENCOUNTER 2017-05-07 00:16 | Emergency (ER) | payer MEDICAID, OTHER ==
[2017-05-07 00:16] VITALS: BMI 24.7
--- NOTE | 2017-05-07 01:45 | C.PDOC ---
History Of Present Illness 31 y/o male presents to the ED for evaluation of right foot pain. States he accidentally kicked a heavy object while at work. Patient had minimal pain at the time and was able to ambulate. Now reports worsening pain throughout the day , prompting him to come in for further evaluation. Patient denies any numbness, tingling, or weakness. Time Seen by Provider: 05/07/17 00:36 Chief Complaint (Nursing): Lower Extremity Problem/Injury History Per: Patient History/Exam Limitations: no limitations Onset/Duration Of Symptoms: Days (x1) Current Symptoms Are (Timing): Still Present Past Medical History Reviewed: Historical Data, Nursing Documentation, Vital Signs Vital Signs: Last Vital Signs Temp 97.2 F L 05/07/17 01:55 Pulse 75 05/07/17 01:55 Resp 20 05/07/17 01:55 BP 123/78 05/07/17 01:55 Pulse Ox 96 05/07/17 04:08 - Medical History PMH: Asthma, Diabetes (Pre-diabetic), Fractures (right ankle), Gall Bladder Disease Denies: Hepatitis, HIV, HTN, Chronic Kidney Disease, Seizures, Sexually Transmitted Disease - [facility] Procedures DETOXIFICATION SERVICES FOR SUBSTANCE ABUSE TREATMENT (08/21/16) INDIV MAINTAINER PLANT FOR SUBSTANCE ABUSE, COGNITIVE BEHAVIORAL (10/16/15) INDIV PSYCHOTHERAPY FOR SUBSTANCE ABUSE TREATMENT, SUPPORT (10/16/15) INDIVIDUAL PSYCHOTHERAPY, SUPPORTIVE (08/21/16) PHARMACOTHERAPY FOR SUBSTANCE ABUSE TREATMENT, ANTABUSE (10/16/15) Family History: States: Unknown Family Hx - Social History Hx Tobacco Use: Yes Hx Alcohol Use: Yes Hx Substance Use: Yes (percocet detox-no narcotics requested) - Immunization History Hx Tetanus Toxoid Vaccination: Yes Hx Influenza Vaccination: No Hx Pneumococcal Vaccination: No Review Of Systems Except As Marked, All Systems Reviewed And Found Negative. Musculoskeletal: Positive for: Foot Pain (right) Neurological: Negative for: Weakness, Numbness (and tingling) Physical Exam - Physical Exam Appears: Non-toxic, No Acute Distress Skin: Normal Color, Warm, Dry Head: Atraumatic, Normacephalic Eye(s): bilateral: Normal Inspection, PERRL, EOMI Extremity: Tenderness (@ lateral base of right foot and great toe dorsal aspect) , No Calf Tenderness, Capillary Refill (is normal), No Deformity, Swelling ( minimal swelling to lateral aspect of base of right foot and great toe, dorsally ), No Other (ecchymosis) Extremity: Bilateral: Normal Color And Temperature Pulses: Left Dorsalis Pedis: Normal, Right Dorsalis Pedis: Normal Neurological/Psych: Oriented x3, Normal Speech, Normal Motor, Normal Sensation Gait: Steady (with slight limp due to pain) ED Course And Treatment O2 Sat by Pulse Oximetry: 96 (RA) Pulse Ox Interpretation: Normal - Other Rad x-ray R foot X-Ray: Interpreted by Me, Viewed By Me Interpretation: No fracture, no dislocation Progress Note: Patient given Motrin PO. X-ray, read by me, is negative. Patient stable for discharge home and advised to follow up with podiatry. Disposition Counseled Patient/Family Regarding: Studies Performed, Diagnosis, Need For Followup, Rx Given - Disposition Disposition: HOME/ ROUTINE Disposition Time: 01:42 Condition: STABLE Additional Instructions: Please follow up with PMD Take meds as directed Return to ER if worse Prescriptions: Ibuprofen [Motrin] 600 mg PO Q6H #20 tab Instructions: Foot Sprain (DC) Forms: [employer] (Uzbek) - Clinical Impression Clinical Impression: Right foot sprain - PA / CRESTER / Resident Statement MD/DO has reviewed & agrees with the documentation as recorded. - Scribe Statement The provider has reviewed the documentation as recorded by the Scribe (Thalia Leon) All medical record entries made by the Scribe were at my direction and personally dictated by me. I have reviewed the chart and agree that the record accurately reflects my personal performance of the history, physical exam, medical decision making, and the department course for this patient. I have also personally directed, reviewed, and agree with the discharge instructions and disposition.
[2017-05-07 01:56] VITALS: BP 123/78; PULSE 75; RESP 20; TEMP 97.2
[2017-05-07 04:02] VITALS: O2SAT 96
--- NOTE | 2017-05-07 10:12 | RAD ---
PROCEDURE: Right Foot Radiographs. HISTORY: pain, kicked object COMPARISON: None. FINDINGS: BONES: Normal. No fracture. JOINTS: Normal. SOFT TISSUES: Normal. OTHER FINDINGS: None. IMPRESSION: Normal right foot radiographs.
== END 2017-05-07 01:55 | disposition home or self-care (01) ==
LOC: C.ER 00:16
DX: S93.601A Unspecified sprain of right foot, initial encounter (principal); W22.8XXA Striking against or struck by other objects, initial encounter; Y92.89 Other specified places as the place of occurrence of the external cause; Y99.0 Civilian activity done for income or pay

== ENCOUNTER 2017-06-08 17:18 | Inpatient (IN) | payer MEDICAID ==
[2017-06-08 17:18] VITALS: BMI 24.7
--- NOTE | 2017-06-08 18:08 | C.PDOC ---
History Of Present Illness 32 year old male presents to the ED for heroin drug abuse. He's here for detox and denies suicide Ideation and homicidal Ideation. Patient complains of substance abuse. Time Seen by Provider: 06/08/17 17:39 Chief Complaint (Nursing): Substance Abuse History Per: Patient History/Exam Limitations: intoxication (Heroin drug abuse) Onset/Duration Of Symptoms: Hrs Current Symptoms Are (Timing): Still Present Suicide/Self Injury Attempted (Context): None Past Medical History Reviewed: Historical Data, Nursing Documentation, Vital Signs Vital Signs: Last Vital Signs Temp 98.4 F 06/08/17 17:29 Pulse 80 06/08/17 17:29 Resp 20 06/08/17 17:29 BP 111/70 06/08/17 17:29 Pulse Ox 100 06/08/17 18:55 - Medical History PMH: Asthma, Diabetes (Pre-diabetic), Fractures (right ankle), Gall Bladder Disease Denies: Hepatitis, HIV, HTN, Chronic Kidney Disease, Seizures, Sexually Transmitted Disease - [facility] Procedures DETOXIFICATION SERVICES FOR SUBSTANCE ABUSE TREATMENT (08/21/16) INDIV HR GENERALIST FOR SUBSTANCE ABUSE, COGNITIVE BEHAVIORAL (10/16/15) INDIV PSYCHOTHERAPY FOR SUBSTANCE ABUSE TREATMENT, SUPPORT (10/16/15) INDIVIDUAL PSYCHOTHERAPY, SUPPORTIVE (08/21/16) PHARMACOTHERAPY FOR SUBSTANCE ABUSE TREATMENT, ANTABUSE (10/16/15) Family History: States: Unknown Family Hx - Social History Hx Tobacco Use: Yes Hx Alcohol Use: Yes Hx Substance Use: Yes (percocet detox-no narcotics requested) - Immunization History Hx Tetanus Toxoid Vaccination: Yes Hx Influenza Vaccination: No Hx Pneumococcal Vaccination: No Review Of Systems Except As Marked, All Systems Reviewed And Found Negative. Psych: Negative for: Suicidal ideation Physical Exam - Physical Exam Appears: Non-toxic, No Acute Distress Skin: Normal Color, Warm Head: Atraumatic, Normacephalic Eye(s): bilateral: Normal Inspection, PERRL, EOMI Nose: Normal Oral Mucosa: Moist Neck: Normal, Supple Chest: Symmetrical Cardiovascular: Rhythm Regular, No Murmur Respiratory: Normal Breath Sounds, No Rales, No Rhonchi, No Wheezing Extremity: Bilateral: Atraumatic, Normal Color And Temperature, Normal ROM Neurological/Psych: Oriented x3, Normal Speech ED Course And Treatment - Laboratory Results Result Diagrams: 06/08/17 18:07 06/08/17 18:07 ECG Rhythm: Sinus Rhythm O2 Sat by Pulse Oximetry: 100 (RA) Pulse Ox Interpretation: Normal Medical Decision Making Medical Decision Making: IMPRESSION: Substance Abuse --ALcohol Serum --CMP Panel --Drug Screen Urine --CBC W/DIfferential --Urinalysis Labs reviewed: Urine positive for opiates Patient is medically cleared. Will admit to Dr. Gresham for detox. Disposition Discussed With Dr.: Haroon Gresham Doctor Will See Patient In The: Hospital Counseled Patient/Family Regarding: Studies Performed, Diagnosis - Disposition Disposition: HOSPITALIZED Disposition Time: 19:00 Condition: FAIR Forms: [employer] (Vincentian) - Clinical Impression Clinical Impression: Drug dependence, Drug abuse, opioid type - Scribe Statement The provider has reviewed the documentation as recorded by the Scribe (Ellie Molina) Provider Attestation: All medical record entries made by the Scribe were at my direction and personally dictated by me. I have reviewed the chart and agree that the record accurately reflects my personal performance of the history, physical exam, medical decision making, and the department course for this patient. I have also personally directed, reviewed, and agree with the discharge instructions and disposition.
[2017-06-08 18:12] LABS: BASO # 0.1 K/uL (0.0-0.2); BASO % 0.7 % (0.0-2.0); EOS # 0.2 K/uL (0.0-0.7); EOS % 1.9 % (0.0-4.0); HEMOGLOBIN 13.7 g/dL (12.0-18.0); LYMPH # 2.6 K/uL (1.0-4.3); LYMPH % 32.1 % (20.0-40.0); MEAN CELL VOLUME 88.4 fL (80.0-94.0); MEAN CORPUSCULAR HEMOGLOBIN 30.6 pg (27.0-31.0); MEAN CORPUSCULAR HGB CONC 34.6 g/dL (33.0-37.0); MEAN PLATELET VOLUME 8.3 fL (7.2-11.7); MONO # 0.6 K/uL (0.0-0.8); MONO % 7.9 % (0.0-10.0); NEUT # 4.7 K/uL (1.8-7.0); NEUT % 57.4 % (50.0-75.0); NRBC % 0.2 % (0.0-2.0); RBC 4.49 Mil/uL (4.40-5.90); RED CELL DISTRIBUTION WIDTH 13.4 % (11.5-14.5); WHITE BLOOD COUNT 8.1 K/uL (4.8-10.8)
[2017-06-08 18:18] LABS: SQUAMOUS EPITHIAL 1 /hpf (0-5); URINE BILIRUBIN NEGATIVE (NEGATIVE); URINE BLOOD NEGATIVE (NEGATIVE); URINE CLARITY Hazy (Clear); URINE COLOR YELLOW (YELLOW); URINE GLUCOSE (UA) NORMAL (Normal); URINE LEUKOCYTE ESTERASE NEG Leu/uL (Negative); URINE PROTEIN 1+ mg/dL (NEGATIVE)
[2017-06-08 18:24] LABS: ALB/GLOB RATIO 1.4 (1.0-2.1); ALBUMIN 4.3 g/dL (3.5-5.0); ALT/SGPT 19 U/L (21-72); AST/SGOT 26 U/L (17-59); BLOOD UREA NITROGEN 12 mg/dL (9-20); CALCIUM 9.4 mg/dl (8.6-10.4); GFR AFRICAN-AMERICAN > 60; GFR NON-AFRICAN AMERICAN > 60
[2017-06-08 18:45] LABS: BARBITURATES, UR NEGATIVE (NEGATIVE); BENZODIAZEPINES, UR NEGATIVE (NEGATIVE); PHENCYCLIDINE, UR NEGATIVE (NEGATIVE)
[2017-06-08 18:48] LABS: OPIATES, UR POSITIVE (NEGATIVE)
[2017-06-08] MEDS ORDERED: Buprenorphine Hydrochloride 2 mg SL ONE ×2 (20:54→22:00)
--- NOTE | 2017-06-08 22:29 | PCM.BM ---
<NolbertoZandra - Last Filed: 06/08/17 22:28> Treatment Plan Problems - Problems identified on initial assessmt Potential for opiate withdrawal Date Initiated: 06/08/17 Time Initiated: 22:28 Assessment reference: NA Status: Active Treatment assets and liabiliti Patient Assests: cooperative, ADL independent, negotiates basic needs, cognitively intact Patient Liabilities: substance abuse (Opiate), medical problems (DM) - Milieu Protocol Maintain good personal hygiene: daily Encourage regular showers, daily Remind patient to perform daily oral care, daily Assist patient to perform ADL's Conduct patient checks and document Observation sheet: Q15 minutes Maintain personal safety: every shift Educate patient to report safety concerns to staff, every shift Monitor environment for contraband/sharps Medication safety: Monitor for expected outcome, potential side effects: every shift, Assess barriers to learning: every shift, Assess readiness for medication education: every shift <Christo Stevens - Last Filed: 06/09/17 17:43> - Diagnosis (1) Opioid use disorder, severe, dependence Status: Acute Interventions: 06/09/17 17:43 * Assess 7x/week regarding severity of withdrawal * Educate regarding risks, benefits, side effects and alternatives of medications * Use Motivational Interviewing for abstinence * Use CBT for relapse prevention * Medication management for withdrawal symptoms * Encourage medication assisted treatment *
[2017-06-08] MEDS ORDERED: Aluminum Hydroxide/Magnesium Hydroxide Susp (30 mL) PO PRN (23:32)
[2017-06-09] MEDS: Buprenorphine Hydrochloride 2 mg SL SCH (09:39)
--- NOTE | 2017-06-09 10:41 | PCM.PSYCH ---
Initial Psychiatric Evaluation - Initial Psychiatric Evaluation Type of Admission: Voluntary Legal Status: Capacity Chief Complaint (in patient's own words): "Heroin" History of Present Illness and Precipitating Events: The patient is seen, chart reviewed and case discussed. He is known to the va underwriter from previous admissions. 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 The patient is here for heroin detox; using 20 bags intranasally for the last 4- 5 months. However, his first use was in teenage years. He denies using painkillers, alcohol or other drugs. He smokes 6 cigarettes a day. This is his third detox and he has not been to rehabilitation before. He went to [facility] d/c from but couldn't complete intake (?) He denies psych symptoms. Past psych history: Denies Family psych history: Brother used cocaine but stopped. Medical history: Asthma and diabetes Current Medications: Active Medications Generic Name Dose Route Start Last Admin Trade Name Freq PRN Reason Stop Dose Admin Al Hydrox/Mg Hydrox/Simethicone 30 ml 06/08/17 23:32 Maalox 30 Ml PO TID PRN Indigestion / Heartburn Buprenorphine HCl 8 mg 06/09/17 10:00 06/09/17 09:39 Subutex SL 06/13/17 09:59 8 mg DAILY JOHN Administration Taper Clonidine HCl 0.1 mg 06/08/17 23:32 Catapres PO Q8 PRN COWS Score More or Equal to 5 Loperamide HCl 2 mg 06/08/17 23:29 Imodium PO Q8 PRN Diarrhea Metformin HCl 500 mg 06/09/17 10:00 06/09/17 09:39 Glucophage PO 500 mg DAILY JOHN Administration Ondansetron HCl 4 mg 06/08/17 23:29 Zofran Tab PO Q8 PRN Nausea/Vomiting Pseudoephedrine HCl 60 mg 06/08/17 23:33 Sudafed Tab PO QID PRN Nasal/Sinus Congestion Trazodone HCl 50 mg 06/08/17 20:54 06/08/17 22:05 Desyrel PO 50 mg HS PRN Administration Insomnia Past Psychiatric History - Past Psychiatric History Previous Treatment History: None Pertinent Medical Hx (Current Medical&Sleep Prob, Allergies): Allergies Allergy/AdvReac Type Severity Reaction Status Date / Time No Known Allergies Allergy Verified 06/08/17 17:31 Albuterol HFA [Ventolin HFA 90 mcg/actuation (8 g)] 0.09 mg IH PRN PRN #1 metFORMIN [glucOPHAGE] 500 mg PO DAILY #30 08/25/16 Ibuprofen [Motrin] 600 mg PO Q6H #20 tab 05/07/17 Review of Systems - Neurological Neurological: UNREMARKABLE - Psychiatric Psychiatric: Abnormal Sleep Pattern, Anxiety. absent: Hallucinations, Homicidal Ideation, Irritability, Suicidal Ideation Mental Status Examination - Personal Presentation Personal Presentation: Looks stated age - Affect Affect: Constricted - Motor Activity Motor Activity: Calm - Reliability in Providing Information Reliability in Providing Information: Good - Speech Speech: Organized - Mood Mood: Anxious - Formal Thought Process Formal Thought Process: No Impairment - Cognitive Functions Orientation: Person, Place, Situation, Time Sensorium: Alert Attention/Concentration: Attentive Estimate of Intelligence: Average Judgement: Intact, as evidence by: Insight regarding need for hospitalization Memory: Recent intact, as evidence by: Ability to recall events of the day, Remote intact, as evidenced by: Abilit to recall sig. life events - Risk Risk: Withdrawal, Diminished functioning - Strength & Assets Inventory Strength & Assets Inventory: Cooperative - Limitations Limitations: Other DSM 5 DX - DSM 5 DSM 5 Diagnosis: Opioid withdrawal Opioid use d/o - severe - Recommended/Plan of Treatment Treatment Recommendations and Plan of Treatment: Subutex detox As needed medications Gabapentin for augmentation if needed All risks, benefits and alternatives of medications, including no medications, discussed and the patient understood and agreed. Attend groups and activities Supportive therapy and psychoeducation [place] for abstinence CBT for relapse prevention Encourage MAT Refer to rehab or IOP Attend self-help groups as well [place] for smoking cessation and patch if needed 34 min Projected ELOS: 4-5 days Prognosis: good w treatment - Smoking Cessation Smoking Cessation Initiated: Yes
[2017-06-09] MEDS ORDERED: Buprenorphine Hydrochloride 2 mg SL SCH (23:29)
[2017-06-10] MEDS: Buprenorphine Hydrochloride 2 mg SL SCH (09:37)
--- NOTE | 2017-06-10 21:05 | PCM.PYCHPN ---
Psychiatric Progress Note - Psychiatric Progress Note Patient Chief Complaint: i feel sick Problems Identified/Issues Discussed: pt seen andc examined, discussed with staff. pt complains of anxiety, myaglia and arthraglias he is having trouble sleeping Medical Problems: diabetes Diagnostic Results: reviewed DSM 5 Symptoms Update: insomnia Medication Change: Yes (subutex taper) Medical Record Reviewed: Yes Mental Status Examination - Cognitive Function Orientation: Person, Place, Situation, Time Memory: Intact Attention: WNL Concentration: WNL Association: WNL Fund of Knowledge: WNL - Mood Mood: Anxious - Affect Affect: Constricted - Speech Speech: Appropriate - Formal Thought Process Formal Thought Process: No Impairment - Suicidal Ideation Suicidal Ideation: No Goal/Treatment Plan - Goal/Treatment Plan Need for Continued Stay: Discharge may exacerbated symptoms Progress Toward Problem(s) and Goals/Treatment Plan: opiate withdrawal subutex taper necessary prns opiate use disorder severe group milieu recreational therapy cbt mi supportive psychotherapy Estimated Date of D/C: 06/12/17
[2017-06-11] MEDS: Buprenorphine Hydrochloride 2 mg SL SCH (09:45)
--- NOTE | 2017-06-11 12:30 | PCM.PYCHPN ---
Psychiatric Progress Note - Psychiatric Progress Note Patient seen today, length of contact: 16 min Patient Chief Complaint: "Better" Problems Identified/Issues Discussed: The pt is seen, chart reviewed, case discussed with staff. The pt is compliant with medications and reports no side-effects. Symptoms are improving but needs more time to stabilize. After care discussed, support and psychoeducation given. Medication Change: Yes (subutex taper) Medical Record Reviewed: Yes Mental Status Examination - Cognitive Function Orientation: Person, Place, Situation, Time Memory: Intact Attention: WNL Concentration: WNL Association: WNL Fund of Knowledge: WNL - Mood Mood: Anxious - Affect Affect: Constricted - Speech Speech: Appropriate - Formal Thought Process Formal Thought Process: No Impairment - Suicidal Ideation Suicidal Ideation: No - Homicidal Ideation Homicidal Ideation: No Goal/Treatment Plan - Goal/Treatment Plan Need for Continued Stay: Discharge may exacerbated symptoms Progress Toward Problem(s) and Goals/Treatment Plan: Subutex detox As needed medications Gabapentin for augmentation if needed All risks, benefits and alternatives of medications, including no medications, discussed and the patient understood and agreed. Attend groups and activities Supportive therapy and psychoeducation [place] for abstinence CBT for relapse prevention Encourage MAT Refer to rehab or IOP Attend self-help groups as well [place] for smoking cessation and patch if needed TFts bc of low TSH
[2017-06-12] MEDS: Buprenorphine Hydrochloride 2 mg SL SCH (09:17)
--- NOTE | 2017-06-12 12:36 | PCM.PYCHPN ---
Psychiatric Progress Note - Psychiatric Progress Note Patient seen today, length of contact: 15 min Patient Chief Complaint: "Tired" Problems Identified/Issues Discussed: The pt is seen, chart reviewed, case discussed with staff. Support given, CBT and CO used briefly No new symptoms reported, improving slowly and needs more time No SEs from medications, risks discussed. After care discussed TFTs ordered Medication Change: Yes (subutex taper) Medical Record Reviewed: Yes Mental Status Examination - Cognitive Function Orientation: Person, Place, Situation, Time Memory: Intact Attention: WNL Concentration: WNL Association: WNL Fund of Knowledge: WNL - Mood Mood: Anxious - Affect Affect: Constricted - Speech Speech: Appropriate - Formal Thought Process Formal Thought Process: No Impairment - Suicidal Ideation Suicidal Ideation: No - Homicidal Ideation Homicidal Ideation: No Goal/Treatment Plan - Goal/Treatment Plan Need for Continued Stay: Discharge may exacerbated symptoms Progress Toward Problem(s) and Goals/Treatment Plan: Subutex detox As needed medications Gabapentin for augmentation if needed All risks, benefits and alternatives of medications, including no medications, discussed and the patient understood and agreed. Attend groups and activities Supportive therapy and psychoeducation [place] for abstinence CBT for relapse prevention Encourage MAT Refer to rehab or IOP Attend self-help groups as well [place] for smoking cessation and patch if needed TFts bc of low TSH Estimated Date of D/C: 06/12/17
[2017-06-12 18:56] VITALS: RESP 18
[2017-06-13] MEDS ORDERED: Buprenorphine Hydrochloride 2 mg SL ONE (09:00)
--- NOTE | 2017-06-13 09:03 | PCM.PYCHDC ---
Mental Status Examination - Mental Status Examination Orientation: Person Discharge Summary - Discharge Note Laboratory Data: Abnormal Lab Results 06/12/17 06/13/17 14:06 07:16 POC Glucose (mg/dL) 87 Free T4 1.00 TSH 3rd Generation 1.32 Consultations:: List each consultation separately and include: 1. Reason for request. 2. Findings. 3. Follow-up Summary of Hospital Course include:: 1. Description of specific treatment plan utilized for patients during their course of treatmen. 2. Summarize the time- course for resolution of acute symptoms and/or regressed behaviors. 3. Describe issues identified and worked on during hospitalization. 4. Describe medication utilized. 5. Describe medical problems identified and treated. 6. Reassessment of suicide risk Summary of Hospital Course: The patient is seen, chart reviewed and case discussed. He is known to the verse writer from previous admissions. 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 The patient is here for heroin detox; using 20 bags intranasally for the last 4- 5 months. However, his first use was in teenage years. He denies using painkillers, alcohol or other drugs. He smokes 6 cigarettes a day. This is his third detox and he has not been to rehabilitation before. He went to [facility] d/c from but couldn't complete intake (?) He denies psych symptoms. Past psych history: Denies Family psych history: Brother used cocaine but stopped. Medical history: Asthma and diabetes He will go to [facility] rehab. - Diagnosis (1) Opioid use disorder, severe, dependence Current Visit: Yes Status: Acute - Final Diagnosis (DSM 5) Condition upon Discharge: FAIR Disposition: HOME/ ROUTINE Follow-up Treatment Plan: Subutex detox As needed medications Gabapentin for augmentation if needed All risks, benefits and alternatives of medications, including no medications, discussed and the patient understood and agreed. Attend groups and activities Supportive therapy and psychoeducation [place] for abstinence CBT for relapse prevention Encourage MAT Refer to rehab or IOP Attend self-help groups as well [place] for smoking cessation and patch if needed TFts bc of low TSH Prescriptions/Medication Reconciliation: metFORMIN [glucOPHAGE] 500 mg PO DAILY #30 tab QUEtiapine [Seroquel] 100 mg PO HS #30 tab
[2017-06-13 09:15] VITALS: BP 109/71; PULSE 75; TEMP 98.3; O2SAT 99
== END 2017-06-13 10:00 | disposition home or self-care (01) | DRG 745 ==
LOC: C.ER 17:18 → C.7D 18:58
PROVIDERS: ADMIT Psychiatry & Neurology Psychiatry; ATTEND Psychiatry & Neurology Psychiatry
PROC: HZ2ZZZZ Detoxification Services for Substance Abuse Treatment (ICD-10-PCS; principal; 2017-06-08)
PROC: HZ52ZZZ Individual Psychotherapy for Substance Abuse Treatment, Cognitive-Behavioral (ICD-10-PCS; 2017-06-08)
PROC: HZ59ZZZ Individual Psychotherapy for Substance Abuse Treatment, Supportive (ICD-10-PCS; 2017-06-08)
PROC: HZ56ZZZ Individual Psychotherapy for Substance Abuse Treatment, Psychoeducation (ICD-10-PCS; 2017-06-08)
PROC: HZ42ZZZ Group Counseling for Substance Abuse Treatment, Cognitive-Behavioral (ICD-10-PCS; 2017-06-08)
PROC: HZ46ZZZ Group Counseling for Substance Abuse Treatment, Psychoeducation (ICD-10-PCS; 2017-06-08)
DX: F11.23 Opioid dependence with withdrawal (principal); E11.9 Type 2 diabetes mellitus without complications; F17.210 Nicotine dependence, cigarettes, uncomplicated; G47.00 Insomnia, unspecified; J45.909 Unspecified asthma, uncomplicated

== ENCOUNTER → 2017-07-18 13:14 | Emergency (ER) | payer MEDICAID ==
[2017-07-18 13:15] VITALS: BMI 24.7
== END | disposition left against medical advice (07) ==
LOC: C.ER 13:14
DX: Z02.89 Encounter for other administrative examinations (principal); Z00.8 Encounter for other general examination

== ENCOUNTER 2017-07-24 17:12 | Inpatient (IN) | payer MEDICAID ==
[2017-07-24 17:13] VITALS: BMI 24.7
[2017-07-24 18:14] LABS: BASO # 0.1 K/uL (0.0-0.2); BASO % 0.9 % (0.0-2.0); EOS # 0.3 K/uL (0.0-0.7); EOS % 3.8 % (0.0-4.0); HEMOGLOBIN 13.9 g/dL (12.0-18.0); LYMPH # 2.9 K/uL (1.0-4.3); LYMPH % 40.1 % (20.0-40.0); MEAN CELL VOLUME 89.4 fL (80.0-94.0); MEAN CORPUSCULAR HEMOGLOBIN 30.1 pg (27.0-31.0); MEAN CORPUSCULAR HGB CONC 33.6 g/dL (33.0-37.0); MEAN PLATELET VOLUME 8.8 fL (7.2-11.7); MONO # 0.7 K/uL (0.0-0.8); MONO % 9.1 % (0.0-10.0); NEUT # 3.4 K/uL (1.8-7.0); NEUT % 46.1 % (50.0-75.0); NRBC % 0.3 % (0.0-2.0); RBC 4.61 Mil/uL (4.40-5.90); RED CELL DISTRIBUTION WIDTH 13.8 % (11.5-14.5); WHITE BLOOD COUNT 7.4 K/uL (4.8-10.8)
[2017-07-24 18:21] LABS: SQUAMOUS EPITHIAL < 1 /hpf (0-5); URINE BACTERIA OCC (<OCC); URINE BILIRUBIN NEGATIVE (NEGATIVE); URINE BLOOD NEGATIVE (NEGATIVE); URINE CLARITY Clear (Clear); URINE COLOR Yellow (YELLOW); URINE GLUCOSE (UA) NORMAL (Normal); URINE LEUKOCYTE ESTERASE NEG Leu/uL (Negative); URINE PROTEIN NEGATIVE (NEGATIVE); URINE UROBILINOGEN NORMAL mg/dL (0.2-1.0)
[2017-07-24 18:26] LABS: ALB/GLOB RATIO 1.5 (1.0-2.1); ALBUMIN 4.4 g/dL (3.5-5.0); ALT/SGPT 28 U/L (21-72); AST/SGOT 25 U/L (17-59); BLOOD UREA NITROGEN 12 mg/dL (9-20); CALCIUM 9.1 mg/dl (8.6-10.4); GFR AFRICAN-AMERICAN > 60; GFR NON-AFRICAN AMERICAN > 60
[2017-07-24 18:31] LABS: BARBITURATES, UR NEGATIVE (NEGATIVE); BENZODIAZEPINES, UR NEGATIVE (NEGATIVE); PHENCYCLIDINE, UR NEGATIVE (NEGATIVE)
[2017-07-24 18:51] LABS: OPIATES, UR POSITIVE (NEGATIVE)
--- NOTE | 2017-07-24 19:16 | C.PDOC ---
Time Seen by Provider: 07/24/17 17:38 Chief Complaint (Nursing): Psychiatric Evaluation History Per: Patient Onset/Duration Of Symptoms: Days Current Symptoms Are (Timing): Still Present Suicide/Self Injury Attempted (Context): None Modifying Factor(s): Narcotics Severity: Moderate Associated Symptoms: Depression, Suicidal Thoughts Additional History Per: Prior Records Past Medical History Reviewed: Historical Data, Nursing Documentation, Vital Signs Vital Signs: Last Vital Signs Temp 99.1 F 07/24/17 17:18 Pulse 68 07/24/17 17:18 Resp 20 07/24/17 17:18 BP 132/85 07/24/17 17:18 Pulse Ox 100 07/24/17 17:18 - Medical History PMH: Asthma, Depression, Diabetes (Pre-diabetic), Fractures (right ankle), Gall Bladder Disease - [facility] Procedures DETOXIFICATION SERVICES FOR SUBSTANCE ABUSE TREATMENT (06/08/17) GROUP BACKROOM ASSOCIATE FOR SUBSTANCE ABUSE TREATMENT, PSYCHOEDUCATION (06/08/17) GROUP BACKROOM ASSOCIATE FOR SUBSTANCE ABUSE, COGNITIVE BEHAVIORAL (06/08/17) INDIV BACKROOM ASSOCIATE FOR SUBSTANCE ABUSE, COGNITIVE BEHAVIORAL (10/16/15) INDIV PSYCHOTHERAPY FOR SUBSTANCE ABUSE TREATMENT, SUPPORT (06/08/17) INDIV PSYCHOTHERAPY FOR SUBSTANCE ABUSE, COGNITIV BEHAVIORAL (06/08/17) INDIV PSYCHOTHERAPY FOR SUBSTANCE ABUSE, PSYCHOEDUCATION (06/08/17) INDIVIDUAL PSYCHOTHERAPY, SUPPORTIVE (08/21/16) PHARMACOTHERAPY FOR SUBSTANCE ABUSE TREATMENT, ANTABUSE (10/16/15) Family History: States: Unknown Family Hx - Social History Hx Tobacco Use: Yes Hx Alcohol Use: No Hx Substance Use: Yes - Immunization History Hx Tetanus Toxoid Vaccination: Yes Hx Influenza Vaccination: No Hx Pneumococcal Vaccination: No Review Of Systems Except As Marked, All Systems Reviewed And Found Negative. Constitutional: Negative for: Fever, Weakness Cardiovascular: Negative for: Chest Pain Respiratory: Negative for: Shortness of Breath Gastrointestinal: Negative for: Vomiting, Abdominal Pain Genitourinary: Negative for: Dysuria Musculoskeletal: Negative for: Neck Pain Skin: Negative for: Rash Neurological: Negative for: Weakness, Numbness Physical Exam - Physical Exam Appears: Non-toxic, No Acute Distress Skin: Normal Color, Warm, Dry, No Rash Head: Atraumatic, Normacephalic Eye(s): bilateral: PERRL, EOMI Neck: Normal ROM, Supple Cardiovascular: Rhythm Regular Respiratory: Normal Breath Sounds, No Accessory Muscle Use Gastrointestinal/Abdominal: Soft, No Tenderness Extremity: Normal ROM Neurological/Psych: Oriented x3, Normal Motor, Normal Sensation ED Course And Treatment - Laboratory Results Result Diagrams: 07/24/17 18:11 07/24/17 18:11 Lab Interpretation: No Acute Changes O2 Sat by Pulse Oximetry: 100 Pulse Ox Interpretation: Normal Progress Note: Pt is medically stable for psychiatric admission. Disposition Counseled Patient/Family Regarding: Studies Performed, Diagnosis, Smoking Cessation - Disposition Disposition: HOSPITALIZED Disposition Time: 19:16 Condition: STABLE - Clinical Impression Clinical Impression: Depression, Opioid abuse Decision To Admit - Pt Status Changed To: Hospital Disposition Of: Inpatient - Admit Certification Admit to Inpatient:: After my assessment, the patient will require hospitalization for at least two midnights. This is because of the severity of symptoms shown, intensity of services needed, and/or the medical risk in this patient being treated as an outpatient. - InPatient: Physician Admission Certification: I certify that this patient requires 2 or more midnights of care for the following reason:: Psych - . Bed Request Type: Psychiatry Admitting Physician: Christo Stevens Patient Diagnosis: Depression, Opioid abuse
[2017-07-24 20:10] VITALS: O2SAT 98
[2017-07-24] MEDS ORDERED: Albuterol HFA 90 mcg/actuation (8 g) INH PRN (20:30)
--- NOTE | 2017-07-24 20:38 | PCM.BM ---
<Ame Mccullough - Last Filed: 07/24/17 20:36> Treatment Plan Problems - Problems identified on initial assessmt Depression Date Initiated: 07/24/17 Time Initiated: 20:37 Assessment reference: NA Status: Active Substance Abuse Date Initiated: 07/24/17 Time Initiated: 20:37 Assessment reference: NA Status: Active Treatment assets and liabiliti Patient Assests: cooperative, self-reliant, ADL independent, negotiates basic needs, cognitively intact Patient Liabilities: financial problems, substance abuse (opiates ), medical problems (diabetes) - Milieu Protocol Maintain good personal hygiene: daily Encourage regular showers, daily Remind patient to perform daily oral care, daily Assist patient to perform ADL's Conduct patient checks and document Observation sheet: Q15 minutes (safety) Maintain personal safety: every shift Educate patient to report safety concerns to staff, every shift Monitor environment for contraband/sharps Medication safety: Monitor for expected outcome, potential side effects: every shift, Assess barriers to learning: every shift, Assess readiness for medication education: every shift <Christo Stevens - Last Filed: 07/25/17 11:32> - Diagnosis (1) Opioid use disorder, severe, dependence Status: Acute Interventions: 07/25/17 11:32 * Assess 7x/week regarding severity of withdrawal * Educate regarding risks, benefits, side effects and alternatives of medications * Use Motivational Interviewing for abstinence * Use CBT for relapse prevention * Medication management for withdrawal symptoms * Encourage medication assisted treatment * (2) Depression Status: Acute Interventions: 07/25/17 11:32 * Assess/adjust medications daily and /or as needed * See patient on an individual basis 7x/week to assess symptoms of depression * Monitor for side effects & effectiveness of medications * <Jaimee Mcbride - Last Filed: 07/25/17 17:05> Family Contact Family involvement: Patient does not wish Family/SO involvement Family contact: Patient declines to allow family contact at present - Goals for Treatment Patient goals for treatment: "I do not know what I want to do." Discharge/Continuing Care - Education Needs Education Needs: Patient Medication, Patient Diagnosis/Disease Process, Patient Coping Skills - Discharge Discharge Criteria: Free of Suicidal thoughts, Normal sleep pattern, Ability to care for self, No longer exhibiting s/s of withdrawal, Reduction of target symptoms Discharge to:: Substance Abuse Rehab, Other - Treatment Team Participation Discussed with Family/SO: No Was Patient/Family/SO present at Treatment Team Meeting: Yes
[2017-07-25 06:29] VITALS: RESP 18
--- NOTE | 2017-07-25 11:32 | PCM.PSYCH ---
Initial Psychiatric Evaluation - Initial Psychiatric Evaluation Type of Admission: Voluntary Legal Status: Capacity Chief Complaint (in patient's own words): "I am depressed" History of Present Illness and Precipitating Events: The patient is seen, chart reviewed and case discussed. He is known to the racebook writer from previous admissions. 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 The patient is here for suicidal thoughts and depression and also for heroin detox; using 20 bags intranasally for the last 1 month. However, his first use was in teenage years. He denies using alcohol or other drugs. He smokes 1 packet cigarettes a day. He sometimes uses Percocets, 1 or 2, he adds. He was in our detox and sent to [facility] rehab in [place], but he left when his mo of cancer 1.5 months ago. Since then he has been using and feeling increasingly depressed. He admits to thinking about OD'ing intentionally. He is not suicidal now. No AVH or delusions. Past psych history: Denies Family psych history: Brother used cocaine but stopped. Medical history: Asthma and diabetes Current Medications: Active Medications Generic Name Dose Route Start Last Admin Trade Name Freq PRN Reason Stop Dose Admin Albuterol 1 puff 07/24/17 20:30 Ventolin Hfa 90 Mcg/Actuation (8 G) INH RQ4 PRN SOB Hydroxyzine HCl 50 mg 07/24/17 20:30 Atarax PO Q6H PRN Anxiety Ibuprofen 600 mg 07/24/17 20:30 Motrin Tab PO Q6H PRN Pain, moderate (4-7) Metformin HCl 500 mg 07/25/17 08:00 07/25/17 10:06 Glucophage PO 500 mg BIDCC JOHN Administration Methadone HCl 25 mg 07/25/17 11:45 Methadone PO 07/25/17 11:46 ONCE ONE Mirtazapine 15 mg 07/24/17 22:00 07/24/17 22:26 Remeron PO 15 mg HS JOHN Administration Past Psychiatric History - Past Psychiatric History Previous Treatment History: None Pertinent Medical Hx (Current Medical&Sleep Prob, Allergies): Allergies Allergy/AdvReac Type Severity Reaction Status Date / Time No Known Allergies Allergy Verified 07/24/17 17:20 Albuterol HFA [Ventolin HFA 90 mcg/actuation (8 g)] 0.09 mg IH PRN PRN #1 metFORMIN [glucOPHAGE] 500 mg PO DAILY #30 tab 06/13/17 Review of Systems - Neurological Neurological: UNREMARKABLE - Psychiatric Psychiatric: Abnormal Sleep Pattern, Anhedonia, Anxiety, Depression, Difficulty Concentrating, Irritability. absent: Hallucinations, Homicidal Ideation, Paranoia, Suicidal Ideation Mental Status Examination - Personal Presentation Personal Presentation: Looks stated age - Affect Affect: Constricted - Motor Activity Motor Activity: Calm - Reliability in Providing Information Reliability in Providing Information: Good - Speech Speech: Organized - Mood Mood: Depressed, Anxious - Formal Thought Process Formal Thought Process: No Impairment - Cognitive Functions Orientation: Person, Place, Situation, Time Sensorium: Alert Attention/Concentration: Attentive Estimate of Intelligence: Average Judgement: Intact, as evidence by: Insight regarding need for hospitalization Memory: Recent intact, as evidence by: Ability to recall events of the day, Remote intact, as evidenced by: Abilit to recall sig. life events - Risk Risk: Withdrawal, Diminished functioning - Strength & Assets Inventory Strength & Assets Inventory: Cooperative - Limitations Limitations: Living alone, Other DSM 5 DX - DSM 5 DSM 5 Diagnosis: Major depression, single, severe, w/o psychosis Opioid withdrawal Opioid use d/o- severe Tobacco use d/o- severe - Recommended/Plan of Treatment Treatment Recommendations and Plan of Treatment: Remeron for depression Taper with methadone Gabapentin for augmentation if needed As needed medications All risks, benefits and alternatives of the meds discussed, and the pt agreed and understood. Attend groups and activities Supportive therapy and psychoeducation [place] for abstinence CBT for relapse prevention Encourage MAT Refer to rehab or IOP, and self-help groups Smoking cessation with [place] Nicotine patch if needed 34 min Projected ELOS: 7 days Prognosis: good w treatment - Smoking Cessation Smoking Cessation Initiated: Yes
[2017-07-26 07:03] VITALS: BP 117/62; PULSE 97; TEMP 97.8
--- NOTE | 2017-07-26 12:02 | PCM.PYCHDC ---
Mental Status Examination - Mental Status Examination Orientation: Person, Place, Situation, Time Memory: Intact Mood: Depressed, Anxious Affect: Constricted Speech: Appropriate Attention: WNL Concentration: Poor Association: WNL Fund of Knowledge: WNL Formal Thought Process: No Impairment Suicidal Ideation: No Current Homicidal Ideation?: No Discharge Summary - Discharge Note Consultations:: List each consultation separately and include: 1. Reason for request. 2. Findings. 3. Follow-up Summary of Hospital Course include:: 1. Description of specific treatment plan utilized for patients during their course of treatmen. 2. Summarize the time- course for resolution of acute symptoms and/or regressed behaviors. 3. Describe issues identified and worked on during hospitalization. 4. Describe medication utilized. 5. Describe medical problems identified and treated. 6. Reassessment of suicide risk Summary of Hospital Course: The patient is seen, chart reviewed and case discussed. He is known to the quality analyst/technical writer from previous admissions. 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 The patient is here for suicidal thoughts and depression and also for heroin detox; using 20 bags intranasally for the last 1 month. However, his first use was in teenage years. He denies using alcohol or other drugs. He smokes 1 packet cigarettes a day. He sometimes uses Percocets, 1 or 2, he adds. He was in our detox and sent to [facility] rehab in [place], but he left when his mo of cancer 1.5 months ago. Since then he has been using and feeling increasingly depressed. He admits to thinking about OD'ing intentionally. He is not suicidal now. No AVH or delusions. Past psych history: Denies Family psych history: Brother used cocaine but stopped. Medical history: Asthma and diabetes - Diagnosis (1) Opioid use disorder, severe, dependence Current Visit: Yes Status: Acute (2) Depression Current Visit: Yes Status: Acute - Final Diagnosis (DSM 5) Condition upon Discharge: STABLE Disposition: AGAINST MEDICAL ADVICE Follow-up Treatment Plan: Remeron for depression Taper with methadone Gabapentin for augmentation if needed As needed medications All risks, benefits and alternatives of the meds discussed, and the pt agreed and understood. Attend groups and activities Supportive therapy and psychoeducation [place] for abstinence CBT for relapse prevention Encourage MAT Refer to rehab or IOP, and self-help groups Smoking cessation with [place] Nicotine patch if needed 34 min
== END 2017-07-26 12:00 | disposition left against medical advice (07) | DRG 430 ==
LOC: C.ER 17:12 → C.9E 19:17 → C.5E 20:13
PROVIDERS: ADMIT Psychiatry & Neurology Psychiatry; ATTEND Psychiatry & Neurology Psychiatry
DX: F32.2 Major depressive disorder, single episode, severe without psychotic features (principal); F11.23 Opioid dependence with withdrawal; F17.200 Nicotine dependence, unspecified, uncomplicated; J45.909 Unspecified asthma, uncomplicated; E11.9 Type 2 diabetes mellitus without complications; R45.851 Suicidal ideations

== ENCOUNTER 2018-03-13 16:22 | Inpatient (IN) | payer MEDICAID ==
[2018-03-13 16:22] VITALS: BMI 24.7
[2018-03-13 17:05] LABS: BASO % 0.5 % (0.0-2.0); EOS # 0.2 K/uL (0.0-0.7); EOS % 2.4 % (0.0-4.0); LYMPH # 3.1 K/uL (1.0-4.3); LYMPH % 35.7 % (20.0-40.0); MEAN CELL VOLUME 88.8 fL (80.0-94.0); MEAN CORPUSCULAR HGB CONC 33.8 g/dL (33.0-37.0); MEAN PLATELET VOLUME 8.2 fL (7.2-11.7); MONO # 0.6 K/uL (0.0-0.8); NEUT # 4.8 K/uL (1.8-7.0); NEUT % 54.4 % (50.0-75.0); RBC 4.98 Mil/uL (4.40-5.90); RED CELL DISTRIBUTION WIDTH 13.8 % (11.5-14.5); WHITE BLOOD COUNT 8.8 K/uL (4.8-10.8)
[2018-03-13 17:18] LABS: SQUAMOUS EPITHIAL 1 /hpf (0-5); URINE BACTERIA RARE (<OCC); URINE BILIRUBIN NEGATIVE (NEGATIVE); URINE BLOOD NEGATIVE (NEGATIVE); URINE CLARITY Clear (Clear); URINE COLOR Yellow (YELLOW); URINE GLUCOSE (UA) NORMAL (Normal); URINE LEUKOCYTE ESTERASE NEG Leu/uL (Negative); URINE PROTEIN NEGATIVE (NEGATIVE)
[2018-03-13 17:23] LABS: BARBITURATES, UR NEGATIVE (NEGATIVE); BENZODIAZEPINES, UR NEGATIVE (NEGATIVE); PHENCYCLIDINE, UR NEGATIVE (NEGATIVE)
[2018-03-13 17:24] LABS: OPIATES, UR POSITIVE (NEGATIVE)
[2018-03-13 17:27] LABS: ALB/GLOB RATIO 1.5 (1.0-2.1); ALBUMIN 4.7 g/dL (3.5-5.0); ALT/SGPT 31 U/L (21-72); AST/SGOT 29 U/L (17-59); BLOOD UREA NITROGEN 11 mg/dL (9-20); CALCIUM 9.2 mg/dl (8.6-10.4); GFR NON-AFRICAN AMERICAN > 60
--- NOTE | 2018-03-13 17:50 | C.PDOC ---
History Of Present Illness 32 y/o male presents to the ED requesting evaluation after expressing suicidal ideation with no plan. He denies having any homicidal ideation or auditory/visual hallucinations. Otherwise patient offers no medical complaints. Time Seen by Provider: 03/13/18 16:36 Chief Complaint (Nursing): Psychiatric Evaluation History Per: Patient History/Exam Limitations: no limitations Onset/Duration Of Symptoms: Hrs Current Symptoms Are (Timing): Still Present Suicide/Self Injury Attempted (Context): None Associated Symptoms: Suicidal Thoughts. denies: Suicidal Plan Past Medical History Reviewed: Historical Data, Nursing Documentation, Vital Signs Vital Signs: Last Vital Signs Temp 98.3 F 03/13/18 16:26 Pulse 84 03/13/18 16:26 Resp 14 03/13/18 16:26 BP 147/96 H 03/13/18 16:26 Pulse Ox 100 03/13/18 16:26 - Medical History PMH: Asthma, Depression, Diabetes (Pre-diabetic), Fractures (right ankle), Gall Bladder Disease Denies: Hepatitis, HIV, HTN, Chronic Kidney Disease, Seizures, Sexually Transmitted Disease - [facility] Procedures DETOXIFICATION SERVICES FOR SUBSTANCE ABUSE TREATMENT (06/08/17) GROUP SALES CORRESPONDENT FOR SUBSTANCE ABUSE TREATMENT, PSYCHOEDUCATION (06/08/17) GROUP SALES CORRESPONDENT FOR SUBSTANCE ABUSE, COGNITIVE BEHAVIORAL (06/08/17) INDIV SALES CORRESPONDENT FOR SUBSTANCE ABUSE, COGNITIVE BEHAVIORAL (10/16/15) INDIV PSYCHOTHERAPY FOR SUBSTANCE ABUSE TREATMENT, SUPPORT (06/08/17) INDIV PSYCHOTHERAPY FOR SUBSTANCE ABUSE, COGNITIV BEHAVIORAL (06/08/17) INDIV PSYCHOTHERAPY FOR SUBSTANCE ABUSE, PSYCHOEDUCATION (06/08/17) INDIVIDUAL PSYCHOTHERAPY, SUPPORTIVE (08/21/16) PHARMACOTHERAPY FOR SUBSTANCE ABUSE TREATMENT, ANTABUSE (10/16/15) Family History: States: Unknown Family Hx - Social History Hx Tobacco Use: Yes Hx Alcohol Use: No Hx Substance Use: Yes (LAST USE YESTERDAY) - Immunization History Hx Tetanus Toxoid Vaccination: Yes Hx Influenza Vaccination: No Hx Pneumococcal Vaccination: No Review Of Systems Constitutional: Negative for: Fever Cardiovascular: Negative for: Chest Pain Respiratory: Negative for: Shortness of Breath Gastrointestinal: Negative for: Vomiting Neurological: Negative for: Weakness, Dizziness Psych: Positive for: Suicidal ideation (with no plan). Negative for: Psychosis (or hallucinations), Other (Homicidal Ideation) Physical Exam - Physical Exam Appears: Non-toxic, No Acute Distress Skin: Warm, Dry Head: Atraumatic, Normacephalic Eye(s): bilateral: Normal Inspection Oral Mucosa: Moist Neck: Normal ROM Chest: Symmetrical Cardiovascular: Rhythm Regular, No Murmur Respiratory: Normal Breath Sounds, No Accessory Muscle Use, Other (No respiratory distress) Gastrointestinal/Abdominal: Soft, No Distention Extremity: Bilateral: Atraumatic, Normal Color And Temperature Neurological/Psych: Oriented x3, Other (Calm, Cooperative) ED Course And Treatment - Laboratory Results Result Diagrams: 03/13/18 16:55 03/13/18 16:55 Lab Results: Total Bilirubin 0.4 mg/dL (0.2-1.3) 03/13/18 16:55 AST 29 U/L (17-59) 03/13/18 16:55 ALT 31 U/L (21-72) 03/13/18 16:55 Alkaline Phosphatase 60 U/L (38-126) 03/13/18 16:55 Total Protein 7.9 g/dL (6.3-8.3) 03/13/18 16:55 Albumin 4.7 g/dL (3.5-5.0) 03/13/18 16:55 Globulin 3.2 gm/dL (2.2-3.9) 03/13/18 16:55 Albumin/Globulin Ratio 1.5 (1.0-2.1) 03/13/18 16:55 Urine Color Yellow (YELLOW) 03/13/18 16:55 Urine Clarity Clear (Clear) 03/13/18 16:55 Urine pH 5.0 (5.0-8.0) 03/13/18 16:55 Ur Specific [place] 1.025 (1.003-1.030) 03/13/18 16:55 Urine Protein Negative mg/dL (NEGATIVE) 03/13/18 16:55 Urine Glucose (UA) Normal mg/dL (Normal) 03/13/18 16:55 Urine Ketones Negative mg/dL (NEGATIVE) 03/13/18 16:55 Urine Blood Negative (NEGATIVE) 03/13/18 16:55 Urine Nitrate Negative (NEGATIVE) 03/13/18 16:55 Urine Bilirubin Negative (NEGATIVE) 03/13/18 16:55 Urine Urobilinogen 2.0 mg/dL (0.2-1.0) 03/13/18 16:55 Ur Leukocyte Esterase Neg Ermias/uL (Negative) 03/13/18 16:55 Urine WBC (Auto) 1 /hpf (0-5) 03/13/18 16:55 Urine RBC (Auto) 2 /hpf (0-3) 03/13/18 16:55 Ur Squamous Epith Cells 1 /hpf (0-5) 03/13/18 16:55 Urine Bacteria Rare (<OCC) 03/13/18 16:55 O2 Sat by Pulse Oximetry: 100 (RA) Pulse Ox Interpretation: Normal Progress Note: Labs ordered for medical clearance. Placed patient on 1:1 obs. Patient evaluated by crisis, still pending labs and disposition. 17:30 Labs reviewed, U-tox shows +opiates. Labs are otherwise unremarkable. Notified metalworker. Patient is medically cleard and accepted by for an admission. Disposition - Disposition Disposition: HOSPITALIZED Disposition Time: 18:52 Condition: STABLE Forms: [facility] (Greenlandic) - Clinical Impression Clinical Impression: Polysubstance (excluding opioids) dependence, Depression, Anxiety - PA / [employer] BPM DEVELOPER / Resident Statement MD/DO has reviewed & agrees with the documentation as recorded. - Scribe Statement The provider has reviewed the documentation as recorded by the Scribe Thalia Leon All medical record entries made by the Scribe were at my direction and personally dictated by me. I have reviewed the chart and agree that the record accurately reflects my personal performance of the history, physical exam, medical decision making, and the department course for this patient. I have also personally directed, reviewed, and agree with the discharge instructions and disposition. Decision To Admit - Pt Status Changed To: Hospital Disposition Of: Inpatient - Admit Certification Admit to Inpatient:: After my assessment, the patient will require hospitalization for at least two midnights. This is because of the severity of symptoms shown, intensity of services needed, and/or the medical risk in this patient being treated as an outpatient. - InPatient: Physician Admission Certification: I certify that this patient requires 2 or more midnights of care for the following reason:: needs more than 2 days of hospitalization - . Bed Request Type: Psychiatry Admitting Physician: Haroon Gresham Patient Diagnosis: Polysubstance (excluding opioids) dependence, Depression, Anxiety
[2018-03-13 19:37] VITALS: O2SAT 98
[2018-03-13] MEDS ORDERED: Aluminum Hydroxide/Magnesium Hydroxide Susp (30 mL) PO PRN (20:14)
--- NOTE | 2018-03-13 20:31 | PCM.BM ---
<Radha Navarreten - Last Filed: 03/13/18 20:29> Treatment Plan Problems - Problems identified on initial assessmt chronic low self esteem Date Initiated: 03/13/18 Time Initiated: 20:30 Assessment reference: NA Status: Active defensive coping Date Initiated: 03/13/18 Time Initiated: 20:30 Assessment reference: NA Status: Active Treatment assets and liabiliti Patient Assests: cooperative, self-reliant, ADL independent, good support system, negotiates basic needs, cognitively intact, good interpersonal skills Patient Liabilities: substance abuse - Milieu Protocol Maintain good personal hygiene: daily Encourage regular showers, daily Remind patient to perform daily oral care, daily Assist patient to perform ADL's Conduct patient checks and document Observation sheet: Q15 minutes Maintain personal safety: every shift Educate patient to report safety concerns to staff, every shift Monitor environment for contraband/sharps Medication safety: Monitor for expected outcome, potential side effects: every shift, Assess barriers to learning: every shift, Assess readiness for medication education: every shift <Haroon Gresham - Last Filed: 03/15/18 11:01> - Diagnosis (1) Depression Status: Acute Interventions: 03/15/18 11:01 * Assess/adjust medications daily and /or as needed * See patient on an individual basis 7x/week to assess symptoms of depression * Monitor for side effects & effectiveness of medications * (2) Opiate dependence Status: Acute Interventions: 03/15/18 11:02 * Assess 7x/week regarding severity of withdrawal * Educate regarding risks, benefits, side effects and alternatives of medications * Use Motivational Interviewing for abstinence * Use CBT for relapse prevention * Medication management for withdrawal symptoms * Encourage medication assisted treatment * <Patricia Mata - Last Filed: 03/15/18 11:43> Family Contact Family involvement: Family/SO is involved Family contact: Patient declines to allow family contact at present - Goals for Treatment Patient goals for treatment: "I want to go to rehab." Discharge/Continuing Care - Education Needs Education Needs: Patient Medication, Patient Coping Skills, Patient Placement options, Patient Community resources - Discharge Discharge Criteria: Tolerates medication w/o severe side effects, No longer exhibiting s/s of withdrawal, Reduction of target symptoms Discharge to:: Substance Abuse Rehab - Treatment Team Participation Discussed with Family/SO: No Was Patient/Family/SO present at Treatment Team Meeting: Yes
--- NOTE | 2018-03-14 10:21 | PCM.PSYCH ---
Initial Psychiatric Evaluation - Initial Psychiatric Evaluation Type of Admission: Voluntary Legal Status: Capacity Chief Complaint (in patient's own words): I was feeling depressed and suicidal History of Present Illness and Precipitating Events: Patient is a 32 year old male who came to the ED with complaints of depressed mood, opioid abuse and suicidal ideation. Patient reports a long history of heroin abuse. He reports of abusing up to 30 bags of heroin daily. His last abuse was yesterday. Patient reports of withdrawal symptoms from heroin including nausea, vomiting, anxiety, headaches, joint pains and cramps. He reports depressed mood, at times feelings of hopelessness and helplessness. He reports poor sleep and poor appetite. However, patient denies any past psychiatric history of any inpatient psychiatric hospitalizations and denies any history of follow-up with any psychiatrist. However he reports history of few detoxes in the past his last detox was in 2017 at [facility]. Patient reports that soon after discharge he relapsed on heroin and started abusing increasing amounts. He reports at times irritable mood, but denies any manic symptoms. He denies any auditory or visual hallucinations or any paranoia. Past medical history DM Current Medications: Active Medications Generic Name Dose Route Start Last Admin Trade Name Freq PRN Reason Stop Dose Admin Acetaminophen 650 mg 03/13/18 20:14 Tylenol 325mg Tab PO Q4H PRN Fever greater than 101 F Al Hydrox/Mg Hydrox/Simethicone 30 ml 03/13/18 20:14 Maalox 30 Ml PO TID PRN Indigestion / Heartburn Clonidine HCl 0.1 mg 03/13/18 20:14 Catapres PO Q6H PRN COWS Score More or Equal to 5 Dicyclomine HCl 10 mg 03/13/18 20:14 Bentyl PO Q6 PRN Muscle spasm Influenza Virus Vaccine 60 mcg 03/16/18 10:00 Flucelvax Quad [id number] Syr IM 03/16/18 10:01 .ONCE ONE Loperamide HCl 2 mg 03/13/18 20:14 Imodium PO Q8 PRN Diarrhea Metformin HCl 500 mg 03/14/18 10:00 Glucophage PO DAILY JOHN Ondansetron HCl 4 mg 03/13/18 20:14 Zofran Tab PO Q8 PRN Nausea/Vomiting Pneumococcal Polyvalent Vaccine 0.5 ml 03/16/18 10:00 Pneumovax 23 Vaccine IM 03/16/18 10:01 .ONCE ONE Trazodone HCl 50 mg 03/13/18 22:00 03/13/18 21:42 Desyrel PO 50 mg HS JOHN Administration Past Psychiatric History - Past Psychiatric History Previous Treatment History: Inpatient Pertinent Medical Hx (Current Medical&Sleep Prob, Allergies): Allergies Allergy/AdvReac Type Severity Reaction Status Date / Time No Known Allergies Allergy Verified 03/13/18 16:26 Albuterol HFA [Ventolin HFA 90 mcg/actuation (8 g)] 0.09 mg IH PRN PRN #1 08/25/16 metFORMIN [glucOPHAGE] 500 mg PO DAILY #30 tab 06/13/17 Review of Systems - Review of Systems All systems: reviewed and no additional remarkable complaints except - Psychiatric Psychiatric: Anxiety, Depression, Hopelessness, Irritability, Suicidal Ideation Mental Status Examination - Personal Presentation Personal Presentation: Looks stated age - Affect Affect: Constricted, Depressed - Motor Activity Motor Activity: Calm - Reliability in Providing Information Reliability in Providing Information: Fair - Speech Speech: Organized - Mood Mood: Depressed, Anxious - Formal Thought Process Formal Thought Process: No Impairment - Obsessions/Compulsions Obsessions: No Compulsions: No - Cognitive Functions Orientation: Person, Place, Situation, Time Sensorium: Alert Attention/Concentration: Attentive Abstract Thinking: [place] Estimate of Intelligence: Below average Judgement: Imparied, as evidence by: Poor judgement, Imparied, as evidence by: Lack of insight into illness - Risk Risk: Suicidal, Withdrawal, Diminished functioning - Limitations Limitations: Living alone DSM 5 DX - DSM 5 DSM 5 Diagnosis: Major depressive disorder single episode severe without psychotic features Opioid use d/o severe Opioid withdrawal - Recommended/Plan of Treatment Treatment Recommendations and Plan of Treatment: Major depressive disorder single episode severe without psychotic features Opioid use d/o severe Opioid withdrawal CBT Psychoeducation Supportive therapy Group therapy Methadone taper Trazodone for insomnia Hydroxyzine for anxiety Gabapentin for augmentation Mirtazapine for Depression Metformin for DM - Smoking Cessation Smoking Cessation Initiated: No
[2018-03-15 06:52] VITALS: RESP 20; TEMP 97.8
[2018-03-15 15:47] VITALS: BP 103/60; PULSE 64
--- NOTE | 2018-03-16 00:45 | PCM.PYCHPN ---
Psychiatric Progress Note - Psychiatric Progress Note Patient seen today, length of contact: 15 min Patient Chief Complaint: I m feeling little better Medication Change: Yes Medical Record Reviewed: Yes Mental Status Examination - Cognitive Function Orientation: Person, Place, Situation, Time Memory: Intact Attention: WNL Concentration: Poor Association: WNL Fund of Knowledge: Poor - Mood Mood: Depressed, Anxious - Affect Affect: Constricted, Depressed - Speech Speech: Soft - Formal Thought Process Formal Thought Process: No Impairment - Suicidal Ideation Suicidal Ideation: No - Homicidal Ideation Homicidal Ideation: No Goal/Treatment Plan - Goal/Treatment Plan Need for Continued Stay: Remain at risks for inpatient hospitalization, Severe depression anxiety Progress Toward Problem(s) and Goals/Treatment Plan: Major depressive disorder single episode severe without psychotic features Opioid use d/o severe Opioid withdrawal CBT Psychoeducation Supportive therapy Group therapy Methadone taper Trazodone for insomnia Hydroxyzine for anxiety Gabapentin for augmentation Mirtazapine for Depression Metformin for DM - Smoking Cessation Smoking Cessation Initiated: No
[2018-03-16] MEDS ORDERED: Influenza Vaccine 60 mcg/0.5 mL SYR (4YR UP) IM ONE (10:00)
[2018-03-16] MEDS ORDERED: Pneumococcal 23-Valent Vaccine IM ONE (10:00)
--- NOTE | 2018-03-16 22:21 | PCM.PYCHDC ---
Mental Status Examination - Mental Status Examination Orientation: Person, Place, Situation, Time Memory: Intact Mood: Neutral Affect: Other (Appropriate) Speech: Appropriate Attention: WNL Concentration: WNL Association: WNL Fund of Knowledge: WNL Formal Thought Process: No Impairment Description of patient's judgement and insight: Poor Psychotic Thoughts and Behaviors: None Suicidal Ideation: No Current Homicidal Ideation?: No Discharge Summary - Discharge Note Reason for Hospitalization: Major depressive disorder single episode severe without psychotic features Opioid use d/o severe Opioid withdrawal Laboratory Data: Abnormal Lab Results 03/16/18 07:45 POC Glucose (mg/dL) 94 Consultations:: List each consultation separately and include: 1. Reason for request. 2. Findings. 3. Follow-up Summary of Hospital Course include:: 1. Description of specific treatment plan utilized for patients during their course of treatmen. 2. Summarize the time- course for resolution of acute symptoms and/or regressed behaviors. 3. Describe issues identified and worked on during hospitalization. 4. Describe medication utilized. 5. Describe medical problems identified and treated. 6. Reassessment of suicide risk Summary of Hospital Course: Patient is a 32 year old male who came to the ED with complaints of depressed mood, opioid abuse and suicidal ideation. Patient reports a long history of heroin abuse. He reports of abusing up to 30 bags of heroin daily. His last abuse was yesterday. Patient reports of withdrawal symptoms from heroin including nausea, vomiting, anxiety, headaches, joint pains and cramps. He reports depressed mood, at times feelings of hopelessness and helplessness. He reports poor sleep and poor appetite. However, patient denies any past psychiatric history of any inpatient psychiatric hospitalizations and denies any history of follow-up with any psychiatrist. However he reports history of few detoxes in the past his last detox was in 2017 at [facility]. Patient reports that soon after discharge he relapsed on heroin and started abusing increasing amounts. He reports at times irritable mood, but denies any manic symptoms. He denies any auditory or visual hallucinations or any paranoia. Past medical history DM During his stay in the hospital patient was started on methadone taper for opioid withdrawal symptoms. He was also started on other medication for his depression also on as needed medications. Patient started feeling little better and signed a 48-hour notice for discharge from the hospital. Education provided to patient to stay and complete the treatment, patient refused to stay. Patient was also educated that in case of any adverse events including decompensation, relapse, overdose or of the patient, patient will be responsible for his acts. Patient understood and agreed with above but still refused to stay. Patient was claiming that his father is in in the hospital and he is the only one who is taking care of him. At the time of evaluation and discharge, patient was awake, alert and oriented x3. Patient denied any delusions, no auditory or visual hallucinations, no suicidal ideations or homicidal ideations at the time of evaluation and discharge. - Final Diagnosis (DSM 5) Condition upon Discharge: STABLE Disposition: HOME/ ROUTINE - Smoking Cessation Smoking Cessation Medication prescribed: No - Antipsychotic Medications Pt discharged on 2 or more routine antipsychotic medications: No
== END 2018-03-16 14:26 | disposition home or self-care (01) | DRG 430 ==
LOC: C.ER 16:22 → C.5E 18:54
PROVIDERS: ADMIT Psychiatry & Neurology Psychiatry; ATTEND Psychiatry & Neurology Psychiatry
DX: F32.2 Major depressive disorder, single episode, severe without psychotic features (principal); F11.23 Opioid dependence with withdrawal; R45.851 Suicidal ideations; Z87.891 Personal history of nicotine dependence; E11.9 Type 2 diabetes mellitus without complications

== ENCOUNTER 2018-04-22 17:12 | Inpatient (IN) | payer MEDICAID, OTHER ==
[2018-04-22 17:33] VITALS: BMI 24.4
--- NOTE | 2018-04-22 17:42 | C.PDOC ---
History Of Present Illness Patient is a 32 year old male who presents to the ED requesting detox from heroin and opiates. Patient reports typically sniffing 30 bags daily and admits to using 20 bags yesterday. Patient is also c/o abdominal pain, back pain, and anxiety. He denies any SI/HI, hallucinations, CP, SOB. <Marie Carney - Last Filed: 04/22/18 19:03> History Per: Patient History/Exam Limitations: no limitations Suicide/Self Injury Attempted (Context): None Associated Symptoms: denies: Suicidal Thoughts, Suicidal Plan Involuntary Hold By: None Recent travel outside of the [place]: No Additional History Per: Patient <Marie Carney - Last Filed: 04/22/18 19:03> <Eliceo Berger - Last Filed: 04/22/18 19:52> Time Seen by Provider: 04/22/18 17:40 Chief Complaint (Nursing): Substance Abuse Past Medical History Reviewed: Historical Data, Nursing Documentation, Vital Signs Vital Signs: Last Vital Signs Temp 98.9 F 04/22/18 17:33 Pulse 98 H 04/22/18 17:33 Resp 18 04/22/18 17:33 BP 125/80 04/22/18 17:33 Pulse Ox 96 04/22/18 17:33 - Medical History PMH: Asthma, Depression, Diabetes (Pre-diabetic), Fractures (right ankle), Gall Bladder Disease Denies: Hepatitis, HIV, HTN, Chronic Kidney Disease, Seizures, Sexually Transmitted Disease Surgical History: No Surg Hx - [facility] DETOXIFICATION SERVICES FOR SUBSTANCE ABUSE TREATMENT (06/08/17) GROUP TRAVELING NURSE FOR SUBSTANCE ABUSE TREATMENT, PSYCHOEDUCATION (06/08/17) GROUP TRAVELING NURSE FOR SUBSTANCE ABUSE, COGNITIVE BEHAVIORAL (06/08/17) INDIV TRAVELING NURSE FOR SUBSTANCE ABUSE, COGNITIVE BEHAVIORAL (10/16/15) INDIV PSYCHOTHERAPY FOR SUBSTANCE ABUSE TREATMENT, SUPPORT (06/08/17) INDIV PSYCHOTHERAPY FOR SUBSTANCE ABUSE, COGNITIV BEHAVIORAL (06/08/17) INDIV PSYCHOTHERAPY FOR SUBSTANCE ABUSE, PSYCHOEDUCATION (06/08/17) INDIVIDUAL PSYCHOTHERAPY, SUPPORTIVE (08/21/16) PHARMACOTHERAPY FOR SUBSTANCE ABUSE TREATMENT, ANTABUSE (10/16/15) Family History: States: Unknown Family Hx - Social History Hx Tobacco Use: Yes Hx Alcohol Use: No Hx Substance Use: Yes (heroin) - Immunization History Hx Tetanus Toxoid Vaccination: Yes Hx Influenza Vaccination: No Hx Pneumococcal Vaccination: No <Marie Carney - Last Filed: 04/22/18 19:03> Vital Signs: Last Vital Signs Temp 98.9 F 04/22/18 17:33 Pulse 98 H 04/22/18 17:33 Resp 18 04/22/18 17:33 BP 125/80 04/22/18 17:33 Pulse Ox 96 04/22/18 19:04 - [facility] DETOXIFICATION SERVICES FOR SUBSTANCE ABUSE TREATMENT (06/08/17) GROUP TRAVELING NURSE FOR SUBSTANCE ABUSE TREATMENT, PSYCHOEDUCATION (06/08/17) GROUP TRAVELING NURSE FOR SUBSTANCE ABUSE, COGNITIVE BEHAVIORAL (06/08/17) INDIV TRAVELING NURSE FOR SUBSTANCE ABUSE, COGNITIVE BEHAVIORAL (10/16/15) INDIV PSYCHOTHERAPY FOR SUBSTANCE ABUSE TREATMENT, SUPPORT (06/08/17) INDIV PSYCHOTHERAPY FOR SUBSTANCE ABUSE, COGNITIV BEHAVIORAL (06/08/17) INDIV PSYCHOTHERAPY FOR SUBSTANCE ABUSE, PSYCHOEDUCATION (06/08/17) INDIVIDUAL PSYCHOTHERAPY, SUPPORTIVE (08/21/16) PHARMACOTHERAPY FOR SUBSTANCE ABUSE TREATMENT, ANTABUSE (10/16/15) <Eliceo Berger - Last Filed: 04/22/18 19:52> Review Of Systems Cardiovascular: Negative for: Chest Pain Respiratory: Negative for: Shortness of Breath Gastrointestinal: Positive for: Abdominal Pain Musculoskeletal: Positive for: Back Pain Psych: Positive for: Anxiety. Negative for: Suicidal ideation, Other (homicidal ideation or hallucinations ) <Marie Carney - Last Filed: 04/22/18 19:03> Physical Exam - Physical Exam Appears: Non-toxic, No Acute Distress Skin: Normal Color, Warm, Dry Head: Atraumatic, Normacephalic Oral Mucosa: Moist Neck: Normal ROM, Supple Gastrointestinal/Abdominal: Soft, No Tenderness Extremity: Normal ROM Neurological/Psych: Oriented x3 <Marie Carney - Last Filed: 04/22/18 19:03> ED Course And Treatment - Laboratory Results Result Diagrams: 04/22/18 18:38 04/22/18 18:38 O2 Sat by Pulse Oximetry: 96 (on RA) Pulse Ox Interpretation: Normal Progress Note: Plan: Labs. Urinalysis <Marie Carney - Last Filed: 04/22/18 19:03> - Laboratory Results Result Diagrams: 04/22/18 18:38 04/22/18 18:38 Lab Results: Total Bilirubin 0.7 mg/dL (0.2-1.3) 04/22/18 18:38 AST 24 U/L (17-59) 04/22/18 18:38 ALT 42 U/L (21-72) 04/22/18 18:38 Alkaline Phosphatase 54 U/L (38-126) 04/22/18 18:38 Total Protein 7.9 g/dL (6.3-8.3) 04/22/18 18:38 Albumin 4.8 g/dL (3.5-5.0) 04/22/18 18:38 Globulin 3.1 gm/dL (2.2-3.9) 04/22/18 18:38 Albumin/Globulin Ratio 1.6 (1.0-2.1) 04/22/18 18:38 Urine Color Yellow (YELLOW) 04/22/18 18:38 Urine Clarity Hazy (Clear) 04/22/18 18:38 Urine pH 5.0 (5.0-8.0) 04/22/18 18:38 Ur Specific [place] 1.032 (1.003-1.030) H 04/22/18 18:38 Urine Protein 1+ mg/dL (NEGATIVE) H 04/22/18 18:38 Urine Glucose (UA) Normal mg/dL (Normal) 04/22/18 18:38 Urine Ketones Trace mg/dL (NEGATIVE) 04/22/18 18:38 Urine Blood Negative (NEGATIVE) 04/22/18 18:38 Urine Nitrate Negative (NEGATIVE) 04/22/18 18:38 Urine Bilirubin 1+ (NEGATIVE) H 04/22/18 18:38 Urine Urobilinogen 2.0 mg/dL (0.2-1.0) 04/22/18 18:38 Ur Leukocyte Esterase Neg [place]ias/uL (Negative) 04/22/18 18:38 Urine WBC (Auto) 4 /hpf (0-5) 04/22/18 18:38 Urine RBC (Auto) 2 /hpf (0-3) 04/22/18 18:38 Hyaline Casts >20 /lpf (0-2) H 04/22/18 18:38 <Eliceo Berger - Last Filed: 04/22/18 19:52> Disposition - Disposition Disposition Time: 19:04 <Marie Carney - Last Filed: 04/22/18 19:03> Discussed With DrFernando: Haroon Gresham Comment: accepted the pt on his service and took over the care at 7:52 PM Doctor Will See Patient In The: Hospital Counseled Patient/Family Regarding: Studies Performed, Diagnosis <Eliceo Berger - Last Filed: 04/22/18 19:52> - Disposition Disposition: HOSPITALIZED Condition: STABLE Forms: [facility] (Jamaican) - Clinical Impression Clinical Impression: Drug abuse, Opioid use disorder, severe, dependence - 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 - Scribe Statement The provider has reviewed the documentation as recorded by the Shanice Tomas All medical record entries made by the Scribe were at my direction and personally dictated by me. I have reviewed the chart and agree that the record accurately reflects my personal performance of the history, physical exam, medical decision making, and the department course for this patient. I have also personally directed, reviewed, and agree with the discharge instructions and disposition. <Marie Carney - Last Filed: 04/22/18 19:03> Physician Patient Turnover Patient Signed Over To: Eliceo Berger Handoff Comments: needs to me medically cleared and admit to detox <Marie Carney - Last Filed: 04/22/18 19:03> Decision To Admit <Marie Carney - Last Filed: 04/22/18 19:03> - Pt Status Changed To: Hospital Disposition Of: Inpatient - Admit Certification Admit to Inpatient:: After my assessment, the patient will require hospitalization for at least two midnights. This is because of the severity of symptoms shown, intensity of services needed, and/or the medical risk in this patient being treated as an outpatient. - InPatient: Physician Admission Certification: I certify that this patient requires 2 or more midnights of care for the following reason:: After my assessment, the patient will require hospitalization for at least two midnights. This is because of the severity of symptoms shown, intensity of services needed, and/or the medical risk in this patient being treated as an outpatient. - . Bed Request Type: Detox Admitting Physician: Haroon Gresham <Eliceo Berger - Last Filed: 04/22/18 19:52> - . Patient Diagnosis: Drug abuse, Opioid use disorder, severe, dependence
[2018-04-22 18:52] LABS: BASO % 0.5 % (0.0-2.0); EOS # 0.2 K/uL (0.0-0.7); EOS % 1.8 % (0.0-4.0); HEMOGLOBIN 14.5 g/dL (12.0-18.0); LYMPH # 3.2 K/uL (1.0-4.3); LYMPH % 30.8 % (20.0-40.0); MEAN CELL VOLUME 89.6 fL (80.0-94.0); MEAN CORPUSCULAR HEMOGLOBIN 29.7 pg (27.0-31.0); MEAN CORPUSCULAR HGB CONC 33.1 g/dL (33.0-37.0); MEAN PLATELET VOLUME 8.8 fL (7.2-11.7); MONO # 0.8 K/uL (0.0-0.8); MONO % 8.1 % (0.0-10.0); NEUT # 6.1 K/uL (1.8-7.0); NEUT % 58.8 % (50.0-75.0); RBC 4.87 Mil/uL (4.40-5.90); RED CELL DISTRIBUTION WIDTH 13.5 % (11.5-14.5); WHITE BLOOD COUNT 10.3 K/uL (4.8-10.8)
[2018-04-22 18:58] LABS: ALB/GLOB RATIO 1.6 (1.0-2.1); ALBUMIN 4.8 g/dL (3.5-5.0); ALT/SGPT 42 U/L (21-72); AST/SGOT 24 U/L (17-59); BLOOD UREA NITROGEN 15 mg/dL (9-20); CALCIUM 9.4 mg/dl (8.6-10.4); GFR NON-AFRICAN AMERICAN > 60
[2018-04-22 19:09] LABS: URINE BILIRUBIN 1+ (NEGATIVE); URINE BLOOD NEGATIVE (NEGATIVE); URINE CLARITY Hazy (Clear); URINE GLUCOSE (UA) NORMAL (Normal); URINE HYALINE CAST >20 /lpf (0-2); URINE LEUKOCYTE ESTERASE NEG Leu/uL (Negative); URINE PROTEIN 1+ mg/dL (NEGATIVE)
[2018-04-22 19:12] LABS: BARBITURATES, UR NEGATIVE (NEGATIVE); BENZODIAZEPINES, UR NEGATIVE (NEGATIVE); PHENCYCLIDINE, UR NEGATIVE (NEGATIVE)
[2018-04-22 19:14] LABS: OPIATES, UR POSITIVE (NEGATIVE); URINE COLOR YELLOW (YELLOW)
[2018-04-22] MEDS ORDERED: Aluminum Hydroxide/Magnesium Hydroxide Susp (30 mL) PO PRN (20:09)
--- NOTE | 2018-04-22 20:11 | PCM.BM ---
<Stuart Bentley - Last Filed: 04/22/18 20:09> Treatment Plan Problems - Problems identified on initial assessmt denial Date Initiated: 04/22/18 Time Initiated: 20:09 Assessment reference: NA Status: Active defensive coping Date Initiated: 04/22/18 Time Initiated: 20:10 Assessment reference: NA Status: Active hopelessness Date Initiated: 04/22/18 Time Initiated: 20:11 Assessment reference: NA Status: Active Treatment assets and liabiliti Patient Assests: cooperative, self-reliant, ADL independent, good support system, negotiates basic needs, cognitively intact, good interpersonal skills Patient Liabilities: substance abuse, medical problems - Milieu Protocol Maintain good personal hygiene: daily Encourage regular showers, daily Remind patient to perform daily oral care, daily Assist patient to perform ADL's Conduct patient checks and document Observation sheet: Q15 minutes Maintain personal safety: every shift Educate patient to report safety concerns to staff, every shift Monitor environment for contraband/sharps Medication safety: Monitor for expected outcome, potential side effects: every shift, Assess barriers to learning: every shift, Assess readiness for medication education: every shift <Kristen Arndt - Last Filed: 04/24/18 12:16> Family Contact Family contact name: girlfriend Family contacted how many times per week?: 2 - Goals for Treatment Patient goals for treatment: Complete detox and transition to Vivitrol maintenance. Discharge/Continuing Care - Education Needs Education Needs: Patient Medication, Patient Diagnosis/Disease Process, Patient Coping Skills, Patient Anger Management skills, Patient Placement options, Patient Community resources - Discharge Discharge Criteria: No longer exhibiting s/s of withdrawal, Reduction of target symptoms Discharge to:: Home - Treatment Team Participation Patient/Family/SO Statement: 04/24/18 12:16 "I wanna go on Vivitrol after detox..." Discussed with Family/SO: No Was Patient/Family/SO present at Treatment Team Meeting: Yes
[2018-04-22] MEDS ORDERED: Buprenorphine Hydrochloride 2 mg SL ONE ×3 (20:56→22:00)
[2018-04-23] MEDS ORDERED: Buprenorphine Hydrochloride 2 mg SL SCH ×2 (10:00→10:25)
[2018-04-23] MEDS: Buprenorphine Hydrochloride 2 mg SL SCH (11:26)
[2018-04-23 12:37] VITALS: RESP 18
--- NOTE | 2018-04-23 14:31 | PCM.PSYCH ---
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 Patient came to detox for opoid use cessation. He typically snorts 30 bags of heroin a day, and he had 20 bags recently. He has a history of abusing percocet as well, but does not mention current use. He started using when he was a teen. He smokes 1 pack of cigarettes daily. He denies use of alcohol any other illicit substances. Patient reports feeling depressed and he has a history of previous suicidal ideation, but denies plan or intention presently. He started feeling severely depressed and increased his drug use after the of his mother not long ago. Patient denies hallucinations and paranoia. Patient has had several detoxes in the past. His most recent was 1 month ago. Since then he has tried to get into [facility], but there were no beds available. He is known to not follow outpt and relapse quickly. He has OD'ed before (within 6 months) not sure about time. Patient complains of chills, flushing, and restlessness. COWS>9 Past psychiatric history: MDD, admissions PMH: Diabetes, asthma, biliary disease PSH: denies Family hx: unknown Meds: Metformin, albuterol Allergies: NKDA Current Medications: Active Medications Generic Name Dose Route Start Last Admin Trade Name Freq PRN Reason Stop Dose Admin Al Hydrox/Mg Hydrox/Simethicone 30 ml 04/22/18 20:09 Maalox 30 Ml PO TID PRN Indigestion / Heartburn Buprenorphine HCl 6 mg 04/23/18 11:00 04/23/18 11:26 Subutex SL 04/26/18 10:59 6 mg DAILY JOHN Administration Taper Clonidine HCl 0.1 mg 04/22/18 20:09 Catapres PO Q4 PRN COWS Score More or Equal to 5 Dicyclomine HCl 10 mg 04/22/18 20:09 Bentyl PO Q6 PRN Muscle spasm Hydroxyzine HCl 25 mg 04/22/18 20:12 04/22/18 21:59 Atarax PO 25 mg Q6 PRN Administration Agitation Ibuprofen 600 mg 04/22/18 20:09 Motrin Tab PO Q6 PRN Pain, moderate (4-7) Loperamide HCl 2 mg 04/22/18 20:09 Imodium PO Q8 PRN Diarrhea Ondansetron HCl 4 mg 04/22/18 20:09 Zofran Tab PO Q8 PRN Nausea/Vomiting Pseudoephedrine HCl 60 mg 04/22/18 20:09 Sudafed Tab PO QID PRN Nasal/Sinus Congestion Trazodone HCl 100 mg 04/22/18 21:08 04/22/18 21:59 Desyrel PO 100 mg HS PRN Administration Sleep Past Psychiatric History - Past Psychiatric History Previous Treatment History: Inpatient Pertinent Medical Hx (Current Medical&Sleep Prob, Allergies): Allergies Allergy/AdvReac Type Severity Reaction Status Date / Time No Known Allergies Allergy Verified 04/22/18 17:32 No Known Home Med 04/22/18 Review of Systems - Psychiatric Psychiatric: Abnormal Sleep Pattern, Anhedonia, Anxiety, Behavioral Changes, Depression, Difficulty Concentrating, Irritability, Mood Swings. absent: H allucinations, Homicidal Ideation, Paranoia, Suicidal Ideation Mental Status Examination - Personal Presentation Personal Presentation: Looks stated age - Affect Affect: Other (intense) - Motor Activity Motor Activity: Psychomotor Agitation - Reliability in Providing Information Reliability in Providing Information: Fair - Speech Speech: Organized - Mood Mood: Depressed, Anxious - Formal Thought Process Formal Thought Process: No Impairment - Cognitive Functions Orientation: Person, Place, Situation, Time Sensorium: Alert Attention/Concentration: Easily distracted Abstract Thinking: Fleming Estimate of Intelligence: Average Judgement: Intact, as evidence by: Insight regarding need for hospitalization Memory: Recent intact, as evidence by: Ability to recall events of the day, Remote intact, as evidenced by: Ability to recall historical events - Risk Risk: Withdrawal, Diminished functioning - Strength & Assets Inventory Strength & Assets Inventory: Cooperative - Limitations Limitations: Living alone, Other DSM 5 DX - DSM 5 DSM 5 Diagnosis: Opioid withdrawal Opioid use d/o - severe Borderline personality d/o Major depressive d/o - severe, w/o psychosis, recurrent - Recommended/Plan of Treatment Treatment Recommendations and Plan of Treatment: Taper with subutex Gabapentin for augmentation if needed remeron for depression Consider mood stabilizer As needed medications All risks, benefits and alternatives of the meds discussed, and the pt agreed and understood. Attend groups and activities Supportive therapy and psychoeducation CA for abstinence CBT for relapse prevention Encourage MAT Refer to rehab or IOP, and self-help groups Teach healthy lifestyle methods, i.e. diet, exercise, meditation Smoking cessation with CA Nicotine patch if needed 34 min Projected ELOS: 4 days Prognosis: good w treatment - Smoking Cessation Smoking Cessation Initiated: Yes
[2018-04-24] MEDS: Buprenorphine Hydrochloride 2 mg SL SCH (10:20)
[2018-04-24] MEDS ORDERED: Buprenorphine Hydrochloride 2 mg SL ONE (14:00)
[2018-04-24 21:18] VITALS: BP 108/72; PULSE 70; TEMP 98.3; O2SAT 96
== END 2018-04-24 22:25 | disposition left against medical advice (07) | DRG 770 ==
LOC: C.ER 17:12 → C.7D 19:51
PROVIDERS: ADMIT Psychiatry & Neurology Psychiatry; ATTEND Psychiatry & Neurology Psychiatry
PROC: HZ2ZZZZ Detoxification Services for Substance Abuse Treatment (ICD-10-PCS; principal; 2018-04-22)
PROC: GZ3ZZZZ Medication Management (ICD-10-PCS; 2018-04-22)
PROC: HZ80ZZZ Medication Management for Substance Abuse Treatment, Nicotine Replacement (ICD-10-PCS; 2018-04-22)
PROC: HZ46ZZZ Group Counseling for Substance Abuse Treatment, Psychoeducation (ICD-10-PCS; 2018-04-22)
PROC: HZ59ZZZ Individual Psychotherapy for Substance Abuse Treatment, Supportive (ICD-10-PCS; 2018-04-22)
DX: F11.23 Opioid dependence with withdrawal (principal); F33.2 Major depressive disorder, recurrent severe without psychotic features; F60.3 Borderline personality disorder; F41.9 Anxiety disorder, unspecified; F17.210 Nicotine dependence, cigarettes, uncomplicated; M54.9 Dorsalgia, unspecified; E11.9 Type 2 diabetes mellitus without complications; J45.909 Unspecified asthma, uncomplicated